=== PATIENT | male | born 1975 | race Caucasian/White ===

== ENCOUNTER 2017-04-21 10:18 | Emergency (ER) | payer SELFPAY ==
[2017-04-21] MEDS ORDERED: ASPIRIN 81 MG TABLET, CHEWABLE PO ONE (10:50)
--- NOTE | 2017-04-21 11:01 | ER Document Report ---
ED General - General Chief Complaint: Cough Stated Complaint: COUGH,CONGESTION,BACK PAIN Time Seen by Provider: 04/21/17 10:43 Mode of Arrival: Ambulatory Information source: Patient Notes: 42-year-old male presents to ED for complaint of cough and congestion for 3 days. He states his left side of his chest and back hurts when he coughs. He has nasal congestion and a sore throat. He states he has had a low-grade fever off and on. Last night his temp was 99.5 so he took some ibuprofen and he states he sweated a lot last night. TRAVEL OUTSIDE OF THE [place] IN LAST 30 DAYS: No - HPI Onset: Other - 3 days Onset/Duration: Gradual Quality of pain: Achy Severity: Moderate Pain Level: 3 Associated symptoms: Body/muscle aches, Chest pain - With cough, Nonproductive cough, Fever, Sore throat Exacerbated by: Coughing Relieved by: Denies Similar symptoms previously: No Recently seen / treated by doctor: No - Related Data Allergies/Adverse Reactions: codeine Allergy (Verified 04/21/17 10:23) venom-wasp [wasp venom] Allergy (Verified 12/28/15 12:39) Past Medical History - General Information source: Patient - Social History Smoking Status: Current Every Day Smoker Cigarette use (# per day): Yes - Pack per day Chew tobacco use (# tins/day): No Smoking Education Provided: Yes Frequency of alcohol use: Social Drug Abuse: Marijuana Family History: CAD, CVA, DM, Hyperlipidemia, Hypertension, Malignancy Patient has suicidal ideation: No Patient has homicidal ideation: No - Past Medical History Cardiac Medical History: Reports: None Renal/ Medical History: Denies: Hx Peritoneal Dialysis Past Surgical History: Reports: Hx Appendectomy, Hx Orthopedic Surgery - back sx - Immunizations Hx Diphtheria, Pertussis, Tetanus Vaccination: Yes Review of Systems - Review of Systems Constitutional: Fever, Recent illness EENT: Nose discharge, Sinus discharge Cardiovascular: Chest pain Respiratory: Cough - With cough, Short of breath Gastrointestinal: No symptoms reported Genitourinary: No symptoms reported Male Genitourinary: No symptoms reported Musculoskeletal: No symptoms reported Skin: No symptoms reported Hematologic/Lymphatic: No symptoms reported Neurological/Psychological: No symptoms reported -: Yes All other systems reviewed and negative Physical Exam - Vital signs Vitals: Pulse Resp BP Pulse Ox 73 20 124/78 98 04/21/17 10:21 04/21/17 10:21 04/21/17 10:21 04/21/17 10:21 Interpretation: Normal - General General appearance: Appears well, Alert - HEENT Head: Normocephalic, Atraumatic Eyes: Normal Pupils: PERRL - Respiratory Respiratory status: No respiratory distress Chest status: Pain with cough, Pain with deep breathing Breath sounds: Productive cough, Rales Chest palpation: Normal - Cardiovascular Rhythm: Regular Heart sounds: Normal auscultation Murmur: No - Abdominal Inspection: Normal Distension: No distension Bowel sounds: Normal Tenderness: Nontender Organomegaly: No organomegaly - Back Back: Normal, Nontender - Extremities General upper extremity: Normal inspection, Nontender, Normal color, Normal ROM , Normal temperature General lower extremity: Normal inspection, Nontender, Normal color, Normal ROM , Normal temperature, Normal weight bearing. No: Chaparro's sign - Neurological Neuro grossly intact: Yes Cognition: Normal Orientation: AAOx4 [place] Coma Scale Eye Opening: Spontaneous Tomasz Coma Scale Verbal: Oriented [place] Coma Scale Motor: Obeys Commands [place] Coma Scale Total: 15 Speech: Normal Motor strength normal: LUE, RUE, LLE, RLE Sensory: Normal - Psychological Associated symptoms: Normal affect, Normal mood - Skin Skin Temperature: Warm Skin Moisture: Dry Skin Color: Normal Course - Re-evaluation Re-evalutation: 04/21/17 22:10 Discussed x-rays labs and assessment with Dr. Boo. She agreed patient could go home after chemistry and cardiac enzymes were normal. Patient stated he had been drinking energy drinks and takes Adderall. Patient was discharged home - Vital Signs Vital signs: Temp Pulse Resp BP Pulse Ox 98.5 F 73 23 H 124/74 99 04/21/17 12:38 04/21/17 10:21 04/21/17 12:38 04/21/17 12:38 04/21/17 12:38 - Laboratory Result Diagrams: 04/21/17 10:58 04/21/17 10:58 Laboratory results interpreted by me: 04/21/17 10:58 Glucose 114 H Calcium 10.3 H Creatine Kinase 193 H - Diagnostic Test Radiology reviewed: Image reviewed, Reports reviewed Discharge - Discharge Clinical Impression: chest pain with cough URI (upper respiratory infection) Qualifiers: URI type: unspecified URI Qualified Code(s): J06.9 - Acute upper respiratory infection, unspecified Condition: Stable Disposition: HOME, SELF-CARE Instructions: Family Physicians / Practices Additional Instructions: UPPER RESPIRATORY ILLNESS: You have a viral infection of the respiratory passages -- a "cold." This common infection causes nasal congestion, drainage, and often sore throat and cough. It is highly contagious. The disease usually lasts about 10 to 14 days. There is no "cure" for the viral infection -- it must run its course. If there is a complication, such as bacterial infection in the nose, sinuses, middle ear, or bronchial tubes, antibiotics may be required. The antibiotics won't affect the virus. Drink plenty of fluids. A humidifier may help. An expectorant medication or decongestant may make you more comfortable. Use acetaminophen or ibuprofen for fever or aches. See the doctor if fever persists over two days, if there is any significant worsening of your symptoms, or if you simply fail to improve as expected. COUGH-SUPPRESSANT & EXPECTORANT MEDICATION: You are to use a cough medication as needed for relief of symptoms. This medicine is a combination of an expectorant (to make the mucous thinner and more easily "coughed up") and a cough suppressant (to reduce the frequency of coughing). The cough-suppressant medicine is related to narcotics. You may experience mild nausea and sleepiness. Some patients who are very sensitive to narcotics may have stomach pain from this medicine. Taking the medicine with food reduces these side effects. Do not drive or work with machinery until you know how this medicine affects you. The expectorant should have no side effects. Iodine-containing expectorants (such as organidin) should not be taken by persons with active thyroid disease unless approved by your doctor. Call the doctor if you develop shortness of breath, hives, rash, itching, lightheadedness, or severe nausea and vomiting. USE OF ACETAMINOPHEN (Tylenol): Acetaminophen may be taken for pain relief or fever control. It's much safer than aspirin, offering a wider range of "safe" dosages. It is safe during . Some brand names are Tylenol, Panadol, Datril, Anacin 3, Tempra, and Liquiprin. Acetaminophen can be repeated every four hours. The following are maximum recommended dosages: >89 pounds or adults 650 mg to 900 mg Acetaminophen can be repeated every four hours. Maximum dose not to exceed 4000 mg a day. SMOKING: If you smoke, you should stop smoking. The tar and chemicals in cigarette smoke are harmful. Smoking has been shown to cause: emphysema chronic bronchitis lung cancer mouth and throat cancer stomach and pancreas cancer premature aging defects In addition, smoking increases ear and lung infections in children of smokers. Please stop using the energy drinks as it can affect your health FOLLOW-UP CARE: If you have been referred to a physician for follow-up care, call the physician s office for an appointment as you were instructed or within the next two days. If you experience worsening or a significant change in your symptoms, notify the physician immediately or return to the Emergency Department at any time for re-evaluation. Forms: Smoking Cessation Education
[2017-04-21 11:25] LABS: ABSOLUTE BASOPHILS # (AUTO) 0.1 10^3/uL (0.0-0.2); ABSOLUTE EOSINOPHILS # (AUTO) 0.1 10^3/uL (0.0-0.6); ABSOLUTE LYMPHOCYTES (AUTO) 1.2 10^3/uL (0.5-4.7); ABSOLUTE MONOCYTES (AUTO) 0.5 10^3/uL (0.1-1.4); ABSOLUTE NEUT (AUTO) 4.4 10^3/uL (1.7-8.2); BASOPHILS % (AUTO) 0.9 % (0-2); EOSINOPHILS % (AUTO) 1.8 % (0-6); HEMOGLOBIN 15.3 g/dL (13.5-17.0); HGB HCT DIFFERENCE 2.9; LYMPHOCYTES % (AUTO) 18.8 % (13-45); MEAN CORPUSCULAR HEMOGLOBIN 31.7 pg (27.0-33.4); MEAN CORPUSCULAR HGB CONC 35.6 g/dL (32.0-36.0); MEAN CORPUSCULAR VOLUME 89 fl (80-97); MONOCYTES % (AUTO) 7.3 % (3-13); RED BLOOD COUNT 4.83 10^6/uL (4.35-5.55); RED CELL DISTRIBUTION WIDTH 12.4 % (11.5-14.0); SEGMENTED NEUTROPHILS % (AUTO) 71.2 % (42-78); WHITE BLOOD COUNT 6.2 10^3/uL (4.0-10.5)
[2017-04-21 11:41] LABS: ANION GAP 9 (5-19); BLOOD UREA NITROGEN 14 mg/dL (7-20); CALCIUM 10.3 mg/dL (8.4-10.2); CARBON DIOXIDE 27 mmol/L (22-30); CHLORIDE 102 mmol/L (98-107); CREATINE KINASE 193 U/L (55-170); CREATININE RESULT 0.83 mg/dL (0.52-1.25); GLUCOSE 114 mg/dL (75-110); POTASSIUM 4.2 mmol/L (3.6-5.0); SODIUM 138.3 mmol/L (137-145)
[2017-04-21 11:43] LABS: APPEARANCE,URINE CLEAR; BILIRUBIN,URINE NEGATIVE (NEGATIVE); GLUCOSE, URINE NEGATIVE (NEGATIVE); KETONES,URINE NEGATIVE (NEGATIVE); LEUKOCYTE ESTERASE,URINE NEGATIVE (NEGATIVE); NITRITE,URINE NEGATIVE (NEGATIVE); PROTEIN,URINE NEGATIVE (NEGATIVE); URINE SPECIFIC GRAVITY 1.006; UROBILINOGEN,URINE NEGATIVE mg/dL (<2.0)
[2017-04-21 11:52] LABS: CREATINE KINASE MB 2.54 ng/mL (<4.55)
[2017-04-21 11:53] LABS: TROPONIN I < 0.012 ng/mL
[2017-04-21 12:00] LABS: URINE BARBITURATES SCREEN NEGATIVE; URINE METHADONE SCREEN NEGATIVE; URINE OPIATES LOW NEGATIVE; URINE PHENCYCLIDINE SCREEN NEGATIVE
--- NOTE | 2017-04-21 12:05 | RADIOLOGY REPORT (SQ) ---
EXAM DESCRIPTION: CHEST PA/LAT COMPLETED DATE/TIME: 04/21/2017 11:47 am REASON FOR STUDY: cough and congestion COMPARISON: None. EXAM PARAMETERS: NUMBER OF VIEWS: two views TECHNIQUE: Digital Frontal and Lateral radiographic views of the chest acquired. RADIATION DOSE: NA LIMITATIONS: none FINDINGS: LUNGS AND PLEURA: No opacities, masses or pneumothorax. No pleural effusion. MEDIASTINUM AND HILAR STRUCTURES: No masses or contour abnormalities. HEART AND VASCULAR STRUCTURES: Heart normal size. No evidence for failure. BONES: No acute findings. HARDWARE: None in the chest. OTHER: No other significant finding. IMPRESSION: NO SIGNIFICANT RADIOGRAPHIC FINDING IN THE CHEST. TECHNICAL DOCUMENTATION: JOB ID: [id number] [employer]- All Rights Reserved
[2017-04-21 12:40] VITALS: BP 124/74
== END 2017-04-21 12:40 | disposition home or self-care (01) ==
LOC: ER 10:18
DX: J06.9 Acute upper respiratory infection, unspecified (principal); R07.9 Chest pain, unspecified; M54.9 Dorsalgia, unspecified; M79.1 Myalgia; F17.210 Nicotine dependence, cigarettes, uncomplicated; Z88.6 Allergy status to analgesic agent; Z91.038 Other insect allergy status
CPT/HCPCS: 36415; 71020; 80048; 80307; 81001; 82550; 82553; 84484; 85025; 99284

== ENCOUNTER 2019-09-01 16:02 | Emergency (ER) | payer SELFPAY ==
[2019-09-01 16:12] VITALS: BP 123/64
[2019-09-01] MEDS ORDERED: IBUPROFEN 800 MG TABLET PO ONE (17:20)
--- NOTE | 2019-09-01 17:20 | ER Document Report ---
HPI - HPI Time Seen by Provider: 09/01/19 17:11 Pain Level: 2 Context: Patient is a 44-year-old male who presents emergency department with a chief complaint of right posterior and anterior rib pain. Patient reports is been constant for about 2 days. 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 Patient not sure if this made it worse. Patient reports the pain is worse with movement and cough. Patient reports 2 days ago also developing a cough with thick mucus. Patient reports he is attempted to use heating pads and Tylenol without much relief. Patient denies abdominal pain, nausea, vomiting or diarrhea. Patient denies chest pain. - CONSTITUTIONAL Constitutional: REPORTS: Fever. DENIES: Chills - REPRODUCTIVE Reproductive: DENIES: : Past Medical History - General Information source: Patient - Social History Smoking Status: Current Every Day Smoker Chew tobacco use (# tins/day): No Frequency of alcohol use: Occasional Drug Abuse: None Lives with: Family Family History: CAD, CVA, DM, Hyperlipidemia, Hypertension, Malignancy Patient has suicidal ideation: No Patient has homicidal ideation: No - Past Medical History Cardiac Medical History: Reports: None Pulmonary Medical History: Reports: None EENT Medical History: Reports: None Neurological Medical History: Reports: None Endocrine Medical History: Reports: None Renal/ Medical History: Reports: None. Denies: Hx Peritoneal Dialysis Malignancy Medical History: Reports None GI Medical History: Reports: None Musculoskeletal Medical History: Reports None Skin Medical History: Reports None Psychiatric Medical History: Reports: None Traumatic Medical History: Reports: None Infectious Medical History: Reports: None Past Surgical History: Reports: Hx Appendectomy, Hx Orthopedic Surgery - back sx - Immunizations Hx Diphtheria, Pertussis, Tetanus Vaccination: Yes Vertical Provider Document - CONSTITUTIONAL Agree With Documented VS: Yes Exam Limitations: No Limitations General Appearance: No Apparent Distress - INFECTION CONTROL TRAVEL OUTSIDE OF THE [place] IN LAST 30 DAYS: No - HEENT HEENT: Atraumatic, Normal ENT Exam, Normocephalic, PERRLA - NECK Neck: Normal Inspection - RESPIRATORY Respiratory: Breath Sounds Normal, No Respiratory Distress Notes: Tenderness noted to the right lower posterior ribs, and tenderness noted to the right lower anterior ribs with palpation. There is no ecchymosis, no CVA tenderness. - CARDIOVASCULAR Cardiovascular: Regular Rate, Regular Rhythm - GI/ABDOMEN Gastrointestinal: Abdomen Soft, Abdomen Non-Tender, Normal Bowel Sounds - MUSCULOSKELETAL/EXTREMETIES Musculoskeletal/Extremeties: FROM - NEURO Level of Consciousness: Awake, Alert, Appropriate - DERM Integumentary: Warm, Dry, No Rash Course - Re-evaluation Re-evalutation: 09/01/19 20:03 Upon reassessment patient resting comfortably no acute distress. Did inform the patient that her symptoms are either to acute to a costochondritis from continuous cough and/or musculoskeletal strain. I did give the patient strict return precautions and will place him on anti-inflammatories [id number]. Patient verbalized understanding denies questions at this time. - Vital Signs Vital signs: Temp Pulse Resp BP Pulse Ox 98.8 F 81 16 123/64 96 09/01/19 16:11 09/01/19 16:11 09/01/19 16:11 09/01/19 16:11 09/01/19 16:11 - Laboratory Laboratory results interpreted by me: 09/01/19 18:26 Laboratory 09/01/19 17:30 Urine Color YELLOW Urine Appearance CLEAR Urine pH 7.0 Ur Specific [place] 1.019 Urine Protein NEGATIVE Urine Glucose (UA) NEGATIVE Urine Ketones NEGATIVE Urine Blood NEGATIVE Urine Nitrite NEGATIVE Urine Bilirubin SMALL H Urine Urobilinogen NEGATIVE Ur Leukocyte Esterase NEGATIVE Urine WBC (Auto) 1 Urine RBC (Auto) 0 Urine Mucus (Auto) RARE Urine Ascorbic Acid NEGATIVE - Diagnostic Test Radiology reviewed: Reports reviewed Radiology results interpreted by me: 09/01/19 18:10 Chest X-Ray 09/01/19 17:18 IMPRESSION: NO ACUTE FINDINGS. Discharge - Discharge Clinical Impression: Rib pain on right side, Costochondritis Condition: Stable Disposition: HOME, SELF-CARE Additional Instructions: *Today was seen in the emergency department for right mid back pain and right rib pain. I did obtain an x-ray which did not show a pneumonia. 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 For both of these you do take anti-inflammatories. Please rest, you can take ibuprofen, Aleve, Motrin for your discomfort. Please return the emergency department if you develop any worsening signs or symptoms such as chest pain, shortness of breath or any new or worsening symptoms. Costochondritis Your chest pain is coming from the rib cartilages in the chest wall. This is often caused by subtle straining of the ribs near the breastbone. The strain can occur from a mild injury, coughing or sneezing with a "cold," vigorous vomiting, or even from rib compression while sleeping. Often the pain doesn't begin until a couple of days after the strain. Persons with arthritis are especially prone to this type of pain, due to inflammation of the cartilage joints near the breast bone. But often, there is no clear reason why it happens. Rest from strenuous physical activity. This kind of chest pain is usually made worse by movement of the chest. Depending on the symptoms, we may prescribe medicine for pain and inflammation. Apply gentle warmth to the painful area for 15 minutes every hour or two. You should call contact the doctor immediately if things change. Further evaluation is needed if you develop a fever or cough, if the nature of the pain changes, or if you become short of breath. Muscle Strain You have strained a muscle -- torn the fibers within the muscle. This often occurs with strenuous exertion, or during an injury that suddenly stretches the muscle. The seriousness of a strain varies. Some strains heal within days, others cause problems for months. X-rays cannot show a muscle strain. X-rays are taken only if symptoms suggest that a fracture could be present. The usual treatment of a muscle strain is rest and ice packs. Sometimes, a sling, splint, or crutches may be necessary to rest the muscle. The muscle can be used again once pain subsides. Severe strains require a special exercise and stretching program to prevent permanent stiffness and disability. Your doctor will advise you if this will be necessary. Call the doctor immediately if pain or swelling becomes severe, or if numbness or discoloration develop. Referrals: [facility] [Provider Group] - Follow up as needed
--- NOTE | 2019-09-01 18:06 | RADIOLOGY REPORT (SQ) ---
EXAM DESCRIPTION: CHEST 2 VIEWS COMPLETED DATE/TIME: 09/01/2019 5:46 pm REASON FOR STUDY: right rib pain COMPARISON: 04/21/2017 TECHNIQUE: Frontal and lateral radiographic views of the chest acquired. NUMBER OF VIEWS: Two view. LIMITATIONS: None. FINDINGS: LUNGS AND PLEURA: No pneumothorax. No consolidation or pleural effusion. MEDIASTINUM AND HILAR STRUCTURES: Stable. HEART AND VASCULAR STRUCTURES: Stable. BONES: No acute findings. HARDWARE: None in the chest. OTHER: No other significant finding. IMPRESSION: NO ACUTE FINDINGS. TECHNICAL DOCUMENTATION: JOB ID: [id number] [employer]- All Rights Reserved Reading location - IP/workstation name: [email or web address]
[2019-09-01 18:08] LABS: APPEARANCE,URINE CLEAR; BILIRUBIN,URINE SMALL (NEGATIVE); COLOR,URINE YELLOW; GLUCOSE, URINE NEGATIVE (NEGATIVE); KETONES,URINE NEGATIVE (NEGATIVE); LEUKOCYTE ESTERASE,URINE NEGATIVE (NEGATIVE); NITRITE,URINE NEGATIVE (NEGATIVE); PROTEIN,URINE NEGATIVE (NEGATIVE); URINE SPECIFIC GRAVITY 1.019; UROBILINOGEN,URINE NEGATIVE mg/dL (<2.0)
== END 2019-09-01 20:19 | disposition home or self-care (01) ==
LOC: ER 16:02
DX: M94.0 Chondrocostal junction syndrome [Tietze] (principal); R07.81 Pleurodynia; R50.9 Fever, unspecified; F17.200 Nicotine dependence, unspecified, uncomplicated
CPT/HCPCS: 71046; 81001; 99283

== ENCOUNTER 2019-09-02 18:05 | Emergency (ER) | payer SELFPAY ==
[2019-09-02] MEDS ORDERED: NORMAL SALINE 1000 ML 1,000 ML IV ONE (22:16)
[2019-09-02] MEDS ORDERED: HYDROMORPHONE HCL INJ/PF 2 MG/ML AMPULE IV ONE (22:17)
[2019-09-02] MEDS ORDERED: ONDANSETRON HCL INJ/PF 4 MG/2 ML SDV IV ONE (22:18)
--- NOTE | 2019-09-02 23:00 | ER Document Report ---
Entered by RENNY MORRISON SCRIBE 09/02/19 [id number] Acting as scribe for:VICKIE KNOX IV, MD ED General - General Chief Complaint: Breathing Difficulty Stated Complaint: CONGESTION,SHORT OF BREATH Time Seen by Provider: 09/02/19 22:02 Mode of Arrival: Ambulatory Information source: Patient Notes: This 44 year old male patient presents to the emergency department today with complaints of generalized chest pain that is exacerbated with any and all movements as well as breathing, coughing, etc. Patient was seen here yesterday for this and was diagnosed with costochondritis. Patient reports that since discharge his cough has gotten worse. Patient reports that yesterday his pain was only on the right side of his chest and he states he was told that "if his pain ever moved to the left side of his chest" he needed to come back into the emergency department. Patient reports prior to arrival his pain was across his entire chest and back which is why he came in today. TRAVEL OUTSIDE OF THE [place] IN LAST 30 DAYS: No - Related Data Allergies/Adverse Reactions: codeine Allergy (Verified 09/01/19 17:01) venom-wasp [wasp venom] Allergy (Verified 09/01/19 17:01) Past Medical History - General Information source: Patient - Social History Smoking Status: Current Every Day Smoker Cigarette use (# per day): Yes Frequency of alcohol use: Social Drug Abuse: None Lives with: Family Family History: CAD, CVA, DM, Hyperlipidemia, Hypertension, Malignancy Patient has suicidal ideation: No Patient has homicidal ideation: No Psychiatric Medical History: Reports: Hx Attention Deficit Hyperactivity Disorder - off meds 05/2019 Past Surgical History: Reports: Hx Appendectomy, Hx Orthopedic Surgery - back sx - Immunizations Hx Diphtheria, Pertussis, Tetanus Vaccination: Yes Review of Systems - Review of Systems Constitutional: See HPI, Fever EENT: No symptoms reported Cardiovascular: See HPI, Chest pain Respiratory: See HPI, Cough, Hurts to breathe Gastrointestinal: No symptoms reported Genitourinary: No symptoms reported Male Genitourinary: No symptoms reported Musculoskeletal: No symptoms reported Skin: No symptoms reported Hematologic/Lymphatic: No symptoms reported Neurological/Psychological: No symptoms reported -: Yes All other systems reviewed and negative Physical Exam - Vital signs Vitals: Temp Pulse Resp BP Pulse Ox 99.2 F 95 18 172/60 H 96 09/02/19 18:21 09/02/19 18:21 09/02/19 18:21 09/02/19 18:21 09/02/19 18:21 - Notes Notes: Physical Exam: General: Alert, appears well. HEENT: Normocephalic. Atraumatic. PERRL. Extraocular movements intact. Oropharynx clear. Neck: Supple. Non-tender. Respiratory: No respiratory distress. Crackles and rhonchi in the right lower lobe. Pain with only minimal palpation of the posterior ribs. Cardiovascular: Regular rate and rhythm. Abdominal: Normal Inspection. Non-tender. No distension. Normal Bowel Sounds. Back: No gross abnormalities. Extremities: Moves all four extremities. Upper extremities: Normal inspection. Normal ROM. Lower extremities: Normal inspection. No edema. Normal ROM. Neurological: Normal cognition. AAOx4. Normal speech. Psychological: Normal affect. Normal Mood. Skin: Warm. Dry. Normal color. Course - Re-evaluation Re-evalutation: 09/03/19 01:32 Patient states his pain is improved. Findings of ED MSE discussed with patient. All questions were answered. Emergency signs and symptoms, reasons to return to the ED discussed with patient. When asked if everything about the patient's ED visit was explained in a manner in which she could understand, patient answered in the affirmative. - Vital Signs Vital signs: Temp Pulse Resp BP Pulse Ox 99.6 F 94 22 H 130/82 H 93 09/03/19 01:20 09/03/19 01:20 09/03/19 01:20 09/03/19 01:20 09/03/19 01:20 - Laboratory Result Diagrams: 09/02/19 23:00 09/02/19 23:00 Laboratory results interpreted by me: 09/02/19 09/02/19 23:00 23:00 WBC 20.9 H Seg Neuts % (Manual) 85 H Band Neutrophils % 7 H Lymphocytes % (Manual) 3 L Abs Neuts (Manual) 19.2 H Sodium 134.4 L Chloride 97 L Glucose 124 H Calcium 10.3 H AST 84 H Alkaline Phosphatase 130 H - EKG Interpretation by Me Additional EKG results interpreted by me: 09/03/19 01:33 EKG obtained on 09/02/2019 at 2240 hrs. was interpreted by this MD. Findings: Normal sinus rhythm, rate 79, normal axis, P waves proceed QRS complexes, QRS complexes appear narrow, there are no obvious patterns of ST segment elevation or depression to suggest acute myocardial ischemia or infarction. Impression normal sinus rhythm with nonspecific ST segments. Discharge - Discharge Clinical Impression: Right lower lobe pneumonia Qualifiers: Pneumonia type: due to unspecified organism Qualified Code(s): J18.9 - Pneumonia, unspecified organism Condition: Good Disposition: HOME, SELF-CARE Additional Instructions: Return to the Emergency Department without delay if any worse. Pneumonia Your examination indicates that you have pneumonia. This is an infection of the lung tissue, usually caused by bacteria or a virus. Symptoms include cough, fever, shaking chills, chest pain, shortness of breath, and coughing up bloody sputum. Treatment for bacterial pneumonia includes rest, antibiotics for 10 to 14 days, increasing your clear liquid intake, a cool mist humidifier at your bedside, and fever medication. Often, a repeat chest X-ray is performed in a few weeks--even if you feel better--to ascertain whether the infection has completely resolved and no underlying lung problem is present. You should call the physician if you develop persistent vomiting, high fever that does not respond to fever medication, increasing shortness of breath, confusion, or lethargy. Also, failure to improve within two to three days is an indication for re-examination. HOME CARE INSTRUCTIONS & INFORMATION: Thank you for choosing us for your medical needs. We hope you're satisfied with the care you received. After you leave, you must properly care for your problem and, at the same time, observe its progress. Any condition can change. Some illnesses can change rapidly over hours or days. If your condition worsens, return to the Emergency Department or see your physician promptly. ABOUT YOUR X-RAYS AND EKG'S: If you had an EKG or X-rays taken, they have been read by the Emergency Physician. The X-rays and EKG's will also be read by a Radiologist or Policy Manager within 24 hours. If discrepancies are noted, you will be notified by telephone. Please be certain the ED has a correct telephone number & address where you can be reached. Also, realize that some fractures or abnormalities do not show up on initial X-rays. If your symptoms continue, see your physician. ABOUT YOUR LABORATORY TEST: If you had laboratory tests, the results have been reviewed by the Emergency Physician. Some test results (for example cultures) may not be available for several days. You will be contacted if any test result shows you need additional treatment. Please be certain the ED has a correct telephone number and address where you can be reached. ABOUT YOUR MEDICATIONS: You will receive instructions on how to take your medicine on the prescription label you receive. Additional information may be provided by the Pharmacy. If you have questions afterwards, call the ED for clarification or further instructions. Some prescribed medications may cause drowsiness. Do not perform tasks such as driving a car or operating machinery without consulting your Pharmacist. If you feel you need a refill of pain medication, your condition will need re-evaluation. Please do not call for a refill of any medication. ABOUT YOUR SIGNATURE: Signature of this document acknowledges to followin. Understanding that you received emergency treatment and that you may be released before al medical problems are known or treated. Please be certain the ED has a correct phone number & address where you can be reached. 2. Acknowledgement that you will arrange for follow-up care as recommended. 3. Authorization for the Emergency Physician to provide information to your follow-up Physician in order to maximize your care. AT ANY TIME, IF YOUR SYMPTOMS CHANGE SIGNIFICANTLY OR WORSEN OR YOU DEVELOP NEW SYMPTOMS, RETURN TO THE EMERGENCY DEPARTMENT IMMEDIATELY FOR RE-EVALUATION. OUR GOAL IS TO PROVIDE EXCELLENT MEDICAL CARE! WE HOPE THAT WE HAVE MET YOUR EXPECTATIONS DURING YOUR EMERGENCY DEPARTMENT SIT AND THAT YOU FEEL YOU HAVE RECEIVED EXCELLENT CARE! Prescriptions: Oxycodone HCl/Acetaminophen [Percocet 5-325 mg Tablet] 1 tab PO Q6HP PRN #12 tablet PRN Reason: Levofloxacin [Levaquin 750 mg Tablet] 750 mg PO DAILY #4 tablet Referrals: SHAHAB DE LEON MD [HONORARY] - Follow up as needed I personally performed the services described in the documentation, reviewed and edited the documentation which was dictated to the scribe in my presence, and it accurately records my words and actions.
[2019-09-02 23:30] LABS: A TYPE INFLUENZA AG NEGATIVE (NEGATIVE); B INFLUENZA AG NEGATIVE (NEGATIVE)
[2019-09-02 23:43] LABS: ALBUMIN 3.9 g/dL (3.5-5.0); ALKALINE PHOSPHATASE 130 U/L (38-126); ANION GAP 9 (5-19); ASPARTATE AMINO TRANSFERASE 84 U/L (17-59); BILIRUBIN,TOTAL 0.8 mg/dL (0.2-1.3); BLOOD UREA NITROGEN 13 mg/dL (7-20); CALCIUM 10.3 mg/dL (8.4-10.2); CARBON DIOXIDE 28 mmol/L (22-30); CHLORIDE 97 mmol/L (98-107); GLUCOSE 124 mg/dL (75-110); POTASSIUM 4.5 mmol/L (3.6-5.0); TOTAL PROTEIN 6.8 g/dL (6.3-8.2)
--- NOTE | 2019-09-02 23:48 | RADIOLOGY REPORT (SQ) ---
EXAM DESCRIPTION: Two views of the chest CLINICAL HISTORY: 44 years Male, crackles right base COMPARISON: Two views of the chest 04/21/2017 FINDINGS: Lungs: parenchymal opacification is seen in the left lower lobe with air bronchograms concerning for pneumonia. There is diffuse prominence of interstitial markings bilaterally and overall lung volumes have decreased. Mediastinum: Cardiac and mediastinal silhouette are unchanged. Bones: Osseous structures are normal. IMPRESSION: Interval reduction in lung volumes with development of parenchymal consolidation in the right lower lobe consistent with pneumonia.
[2019-09-02 23:52] LABS: HEMATOCRIT 43.6 % (37.9-51.0); HEMOGLOBIN 14.8 g/dL (13.5-17.0); MEAN CORPUSCULAR HEMOGLOBIN 29.9 pg (27.0-33.4); MEAN CORPUSCULAR VOLUME 88 fl (80-97); PLATELET COUNT 349 10^3/uL (150-450); RED BLOOD COUNT 4.95 10^6/uL (4.35-5.55); RED CELL DISTRIBUTION WIDTH 12.1 % (11.5-14.0); WHITE BLOOD COUNT 20.9 10^3/uL (4.0-10.5)
[2019-09-03 00:07] LABS: ABSOLUTE LYMPHOCYTES# (MANUAL) 0.6 10^3/uL (0.5-4.7); BAND NEUTROPHILS % (MANUAL) 7 % (3-5); BASOPHILS % (MANUAL) 0 % (0-2); EOSINOPHILS % (MANUAL) 0 % (0-6); LYMPHOCYTES % (MANUAL) 3 % (13-45); MONOCYTES % (MANUAL) 5 % (3-13); SEGMENTED NEUTROPHILS % (MAN) 85 % (42-78); TOTAL CELLS COUNTED 100
[2019-09-03 00:08] LABS: PLATELET COMMENT ADEQUATE; RBC MORPHOLOGY COMMENT NORMO-CYTIC/CHROMIC
[2019-09-03] MEDS ORDERED: LEVOFLOXACIN 750 MG/D5W RTU 750 MG/150 ML RTUPB IV ONE (00:09)
[2019-09-03] MEDS ORDERED: MORPHINE SULFATE 10 MG/ML INJ IV ONE (00:27)
[2019-09-03] MEDS ORDERED: HYDROCODONE/ACETAMINOPHEN 5-325 MG (6 TAB/ER DISP) PO PRN (01:36)
[2019-09-03 01:58] VITALS: BP 127/74
--- NOTE | 2019-09-03 06:30 | EKG REPORT ---
SEVERITY:- ABNORMAL ECG - SINUS RHYTHM PROBABLE LEFT ATRIAL ABNORMALITY BORDERLINE INFERIOR Q WAVES INCOMPLETE RBBB : Confirmed by: Brodie Harris MD 03-Sep-2019 06:29:33
== END 2019-09-03 01:59 | disposition home or self-care (01) ==
LOC: ER 18:05
DX: J18.9 Pneumonia, unspecified organism (principal); R07.1 Chest pain on breathing; R05 Cough; R50.9 Fever, unspecified; F17.210 Nicotine dependence, cigarettes, uncomplicated; Z88.6 Allergy status to analgesic agent; Z88.5 Allergy status to narcotic agent; Z91.038 Other insect allergy status; Z82.49 Family history of ischemic heart disease and other diseases of the circulatory system
CPT/HCPCS: 93005; 99285; 96375; 96365; 36415; 87040; 83690; 85025; 87077; 80053; 87186; 87804; 87150 ×26; 71046; 93010; J2270; J1170; J2405; J7030; J1956

== ENCOUNTER 2019-09-04 11:14 | Inpatient (IN) | payer SELFPAY ==
[2019-09-04] MEDS ORDERED: VANCOMYCIN HCL INJ 1000 MG VIAL IV ONE (12:11)
--- NOTE | 2019-09-04 12:12 | ER Document Report ---
ED Medical Screen (RME) - General Chief Complaint: Back Pain Stated Complaint: BACK PAIN Time Seen by Provider: 09/04/19 12:06 TRAVEL OUTSIDE OF THE [place] IN LAST 30 DAYS: No - HPI Notes: 09/04/19 12:06 44-year-old male presents emergency room for blood cultures that grew positive for methicillin resistant staph aureus as well as for back pain from coughing. He was diagnosed with pneumonia 2 days ago and was started on levofloxacin. Patient was asked to come back to the emergency room for medical treatment. Patient did take prescribed oxycodone for his back pain. Denies any issues with bowel or bladder dysfunction. Reports shortness of breath. Eating and drinking without issues. I have greeted and performed a rapid initial assessment of this patient. A comprehensive ED assessment and evaluation of the patient, analysis of test results and completion of the medical decision making process will be conducted by additional ED providers. PHYSICAL EXAMINATION: GENERAL: Well-appearing, well-nourished and in no acute distress. NECK: Normal range of motion CV: s1, s2 regular LUNGS: Diminished breath sounds in upper lobes no respiratory distress Musculoskeletal: Normal range of motion NEUROLOGICAL: Normal speech, normal gait. SKIN: Warm, Dry, normal turgor, no rashes or lesions noted. 09/04/19 12:13 - Related Data Allergies/Adverse Reactions: codeine Allergy (Verified 09/04/19 12:06) venom-wasp [wasp venom] Allergy (Verified 09/04/19 12:06) Past Medical History Renal/ Medical History: Denies: Hx Peritoneal Dialysis Psychiatric Medical History: Reports: Hx Attention Deficit Hyperactivity Disorder - off meds 05/2019 Past Surgical History: Reports: Hx Appendectomy, Hx Orthopedic Surgery - back sx - Immunizations Hx Diphtheria, Pertussis, Tetanus Vaccination: Yes Physical Exam - Vital signs Vitals: Temp Pulse Resp BP Pulse Ox 98.1 F 74 16 110/61 100 09/04/19 11:43 09/04/19 11:43 09/04/19 11:43 09/04/19 11:43 09/04/19 11:43 Course - Vital Signs Vital signs: Temp Pulse Resp BP Pulse Ox 98.1 F 74 16 110/61 100 09/04/19 11:43 09/04/19 11:43 09/04/19 11:43 09/04/19 11:43 09/04/19 11:43
[2019-09-04] MEDS ORDERED: IPRATROPIUM/ALBUTEROL 0.5-2.5 MG/3 ML AMPUL NEB ONE (12:13)
--- NOTE | 2019-09-04 12:48 | RADIOLOGY REPORT (SQ) ---
EXAM DESCRIPTION: L SPINE WHOLE COMPLETED DATE/TIME: 09/04/2019 12:37 pm REASON FOR STUDY: lower back pain COMPARISON: None. NUMBER OF VIEWS: Five views including obliques. TECHNIQUE: AP, lateral, oblique, and sacral radiographic images acquired of the lumbar spine. LIMITATIONS: None. FINDINGS: MINERALIZATION: Normal. SEGMENTATION: Normal. No transitional anatomy. ALIGNMENT: Dextroscoliosis in the upper lumbar spine. VERTEBRAE: Maintained height. No fracture or worrisome bone lesion. DISCS: Mild disc narrowing from L3-L5. POSTERIOR ELEMENTS: Pedicles and facets are intact. No pars defect or posterior arch defects. HARDWARE: None in the spine. PARASPINAL SOFT TISSUES: Normal. PELVIS: Intact as visualized. No fractures or worrisome bone lesions. SI joints intact. OTHER: No other significant finding. IMPRESSION: Scoliosis. Mild degenerative disc changes. TECHNICAL DOCUMENTATION: JOB ID: [id number] [employer]- All Rights Reserved Reading location - IP/workstation name: [email or web address]
[2019-09-04 13:18] LABS: HEMATOCRIT 41.6 % (37.9-51.0); HEMOGLOBIN 14.5 g/dL (13.5-17.0); MEAN CORPUSCULAR HEMOGLOBIN 30.8 pg (27.0-33.4); MEAN CORPUSCULAR HGB CONC 34.7 g/dL (32.0-36.0); MEAN CORPUSCULAR VOLUME 89 fl (80-97); PLATELET COUNT 293 10^3/uL (150-450); RED BLOOD COUNT 4.69 10^6/uL (4.35-5.55); RED CELL DISTRIBUTION WIDTH 12.5 % (11.5-14.0)
[2019-09-04] MEDS ORDERED: PIPERACILLIN/TAZOBACTAM 3.375 GM VIAL IV ONE (13:32)
[2019-09-04 13:35] LABS: ALBUMIN 3.6 g/dL (3.5-5.0); ALKALINE PHOSPHATASE 168 U/L (38-126); ANION GAP 10 (5-19); ASPARTATE AMINO TRANSFERASE 57 U/L (17-59); BILIRUBIN,DIRECT 1.1 mg/dL (0.0-0.4); BILIRUBIN,TOTAL 2.2 mg/dL (0.2-1.3); BLOOD UREA NITROGEN 18 mg/dL (7-20); CALCIUM 10.3 mg/dL (8.4-10.2); CARBON DIOXIDE 30 mmol/L (22-30); CHLORIDE 93 mmol/L (98-107); GLUCOSE 115 mg/dL (75-110); POTASSIUM 5.2 mmol/L (3.6-5.0); TOTAL PROTEIN 6.6 g/dL (6.3-8.2)
[2019-09-04] MEDS ORDERED: CEFEPIME 1 GM/D5W RTU 1 GM/50 ML RTUPB IV ONE (13:41)
[2019-09-04] MEDS ORDERED: MORPHINE SULFATE 10 MG/ML INJ IV ONE (13:42)
[2019-09-04] MEDS ORDERED: NORMAL SALINE 100 ML IV ONE (13:43)
--- NOTE | 2019-09-04 13:44 | ER Document Report ---
ED General - General Chief Complaint: Abnormal Lab Results Stated Complaint: BACK PAIN Time Seen by Provider: 09/04/19 12:06 TRAVEL OUTSIDE OF THE [place] IN LAST 30 DAYS: No - HPI Notes: 44-year-old male to the emergency department with complaints of cough, chest pain, shortness of breath that has been ongoing for the past 3 to 4 days. He was seen 2 days ago in our emergency department and diagnosed with pneumonia. He was placed on Levaquin. He states that he got a phone call stating that he needed to return to the emergency department because he had positive blood cultures. He states that he has not been feeling very well at all. He states that he has pretty bad back pain as well and this morning he noticed a red raised painful area on his back. He states that he has had a fever upwards of 102. He last took a Percocet this morning for pain and fever control. He states that he is a smoker. He smokes a pack a day but has not been able to do so since all of this started. He denies any nausea, vomiting, diarrhea, urinary complaints. - Related Data Allergies/Adverse Reactions: codeine Allergy (Verified 09/04/19 12:06) venom-wasp [wasp venom] Allergy (Verified 09/04/19 12:06) Home Medications: denies change since er visit yesterday Past Medical History - General Information source: Patient - Social History Smoking Status: Current Every Day Smoker Chew tobacco use (# tins/day): No Frequency of alcohol use: Occasional Drug Abuse: None Lives with: Family Family History: CAD, CVA, DM, Hyperlipidemia, Hypertension, Malignancy Patient has suicidal ideation: No Patient has homicidal ideation: No Renal/ Medical History: Denies: Hx Peritoneal Dialysis Psychiatric Medical History: Reports: Hx Attention Deficit Hyperactivity Disorder - off meds 05/2019 Past Surgical History: Reports: Hx Appendectomy, Hx Orthopedic Surgery - back sx - Immunizations Hx Diphtheria, Pertussis, Tetanus Vaccination: Yes Review of Systems - Review of Systems Constitutional: Chills, Fever, Malaise EENT: No symptoms reported Cardiovascular: Chest pain. denies: Palpitations, Heart racing, Orthopnea, Dyspnea, Syncope, Dizziness Respiratory: Cough, Short of breath Gastrointestinal: denies: Abdominal pain, Diarrhea, Nausea, Vomiting Genitourinary: No symptoms reported Musculoskeletal: See HPI, Back pain Skin: See HPI, Other - Raised red bump on the back that is painful Hematologic/Lymphatic: No symptoms reported Neurological/Psychological: No symptoms reported -: Yes All other systems reviewed and negative Physical Exam - Vital signs Vitals: Temp Pulse Resp BP Pulse Ox 98.1 F 74 16 110/61 100 09/04/19 11:43 09/04/19 11:43 09/04/19 11:43 09/04/19 11:43 09/04/19 11:43 Interpretation: Normal - General General appearance: Alert Notes: Patient in moderate pain distress. When he tries to take a big deep breath or move a lot he has pain in his chest and his back. - HEENT Head: Normocephalic, Atraumatic Eyes: Normal Pupils: PERRL Ears: Normal External canal: Normal Tympanic membrane: Normal Sinus: Normal Nasal: Normal Mouth/Lips: Normal Pharynx: Normal. No: Potential airway comprom. Neck: Normal, Supple. No: Lymphadenopathy, Meningismus - Respiratory Respiratory status: No respiratory distress. No: Retractions, Tachypnea Chest status: Tender - Tender to palpation over the chest wall and the back, Pain on movement, Pain with cough, Pain with deep breathing. No: Accessory muscle use Breath sounds: Decreased air movement - Decreased air movement throughout with cough. No: Rales, Rhonchi, Stridor, Wheezing Chest palpation: Normal - Cardiovascular Rhythm: Regular Heart sounds: Normal auscultation Murmur: No - Abdominal Inspection: Normal Distension: No distension Bowel sounds: Normal Tenderness: Nontender Organomegaly: No organomegaly - Back Back: Tender - Neurological Neuro grossly intact: Yes Cognition: Normal Orientation: AAOx4 [place] Coma Scale Eye Opening: Spontaneous [place] Coma Scale Verbal: Oriented [place] Coma Scale Motor: Obeys Commands [place] Coma Scale Total: 15 Speech: Normal Motor strength normal: LUE, RUE, LLE, RLE Sensory: Normal - Skin Skin Temperature: Warm Skin Moisture: Dry Skin Color: Normal Skin irregularity: Abscess - There appears to be an evolving 3 cm in diameter abscess to the right back. It is not fluctuant but it is indurated. No active drainage Course - Re-evaluation Re-evalutation: 09/04/[address] Chen, hospitalist. He agrees with the plan for admission. Advised that I have given the patient cefepime and vancomycin. Advised of po sitive blood cultures as well as chest x-ray that is positive for pneumonia. Also advised that there is no evolving abscess to the back. Patient states that he does not use IV drugs. Dr. Chen asked me to have surgery follow along with the patient. Spoke with Dr. Mosqueda, general surgeon on-call. He will consult. He would like for the patient to be n.p.o. Impression: Pneumonia, bacteremia, abscess to the back. Patient will be admitted to the hospital for further management. Dr. Chen would like for the patient to go to a medical bed. Discussed this patient with my ER attending, Dr. Bellamy prior to conversation with hospitalist for admission. He agreed with the plan for admission. - Vital Signs Vital signs: Temp Pulse Resp BP Pulse Ox 98.1 F 74 37 H 132/78 H 98 09/04/19 11:43 09/04/19 11:43 09/04/19 14:01 09/04/19 14:00 09/04/19 14:01 - Laboratory Result Diagrams: 09/04/19 12:57 09/04/19 12:57 Laboratory results interpreted by me: 09/04/19 09/04/19 09/04/19 12:57 12:57 12:57 WBC 16.0 H Seg Neuts % (Manual) 87 H Lymphocytes % (Manual) 2 L Abs Neuts (Manual) 14.6 H Sodium 133.3 L Potassium 5.2 H Chloride 93 L Glucose 115 H Calcium 10.3 H Total Bilirubin 2.2 H Direct Bilirubin 1.1 H Alkaline Phosphatase 168 H NT-Pro-B Natriuret Pep 396 H - Diagnostic Test Radiology reviewed: Image reviewed, Reports reviewed Discharge - Discharge Clinical Impression: Bacteremia, Abscess of back Pneumonia Qualifiers: Pneumonia type: due to unspecified organism Laterality: right Lung location: lower lobe of lung Qualified Code(s): J18.9 - Pneumonia, unspecified organism Condition: Stable Disposition: ADMITTED INPATIENT Unit Admitted: Medical Floor
[2019-09-04] MEDS ORDERED: ALBUTEROL SULFATE 0.083% NEB 2.5 MG/3 ML AMPUL NEB ONE (13:45)
[2019-09-04] MEDS: NORMAL SALINE 1000 ML 1,000 ML IV PRN ×2 (13:49→13:51)
[2019-09-04 14:01] LABS: ABSOLUTE MONOCYTES # (MANUAL) 0.5 10^3/uL (0.1-1.4); BAND NEUTROPHILS % (MANUAL) 4 % (3-5); BASOPHILS % (MANUAL) 0 % (0-2); EOSINOPHILS % (MANUAL) 0 % (0-6); LYMPHOCYTES % (MANUAL) 2 % (13-45); MONOCYTES % (MANUAL) 3 % (3-13); SEGMENTED NEUTROPHILS % (MAN) 87 % (42-78); TOTAL CELLS COUNTED 100
[2019-09-04 14:03] LABS: PLATELET COMMENT ADEQUATE
--- NOTE | 2019-09-04 15:00 | RADIOLOGY REPORT (SQ) ---
EXAM DESCRIPTION: CHEST SINGLE VIEW COMPLETED DATE/TIME: 09/04/2019 2:40 pm REASON FOR STUDY: cough, chest pain COMPARISON: 09/02/2019 EXAM PARAMETERS: NUMBER OF VIEWS: One view. TECHNIQUE: Single frontal radiographic view of the chest acquired. RADIATION DOSE: NA LIMITATIONS: None. FINDINGS: LUNGS AND PLEURA: Patchy airspace disease in both lower lobes, left greater than right. M ore conspicuous in the right lobe compared to the prior. Small pleural effusions. MEDIASTINUM AND HILAR STRUCTURES: No masses. Contour normal. HEART AND VASCULAR STRUCTURES: Heart normal in size. Normal vasculature. BONES: No acute findings. HARDWARE: None in the chest. OTHER: No other significant finding. IMPRESSION: Rehydration versus progressing bilateral pneumonia. TECHNICAL DOCUMENTATION: JOB ID: [id number] [employer]- All Rights Reserved Reading location - IP/workstation name: [email or web address]
[2019-09-04] MEDS ORDERED: KETOROLAC TROMETHAMINE INJ/PF 30 MG/1 ML SDV IV ONE (15:23)
[2019-09-04] MEDS ORDERED: VANCOMYCIN HCL 0 MG in DEXTROSE 5%-WATER 250 ML IV NR (15:30)
[2019-09-04 16:58] LABS: URINE BARBITURATES SCREEN NEGATIVE; URINE BENZODIAZEPINES SCREEN NEGATIVE; URINE MARIJUANA (THC) SCREEN NEGATIVE; URINE METHADONE SCREEN NEGATIVE; URINE PHENCYCLIDINE SCREEN NEGATIVE
[2019-09-04 17:06] LABS: URINE COCAINE SCREEN NEGATIVE
--- NOTE | 2019-09-04 17:14 | PDOC H&P ---
History of Present Illness Admission Date/PCP: 09/04/19 15:09 Patient complains of: cough History of Present Illness: BETH NOLASCO is a 44 year old male who denies significant past medical history or prior diagnosis aside from scoliosis who initially presented to the ER with productive cough 2 days ago. He was found to have pneumonia and was sent home on levofloxacin. He had a blood culture drawn encounter and he was called back pain as it grew Staphylococcus aureus in 2 bottles. Upon encounter, he complains he continues to have cough and pleuritic chest pain. He is saturating well on room air. He says he has very mild but it is more because of the pleuritic discomfort. He also now reports that he noticed tenderness on his upper mid back. Have the bedside today and drinks 24 ounces of beer every 2 days. He denies drug use. Her mother will later told this provider that he snorts drugs sure what it is particularly. Past Medical History Medical History: None Psychiatric Medical History: Reports: Attention Deficit Hyperactivity Disorder - off meds 05/2019 Past Surgical History Past Surgical History: Reports: Appendectomy, Orthopedic Surgery - back sx Social History Lives with: Family Smoking Status: Current Every Day Smoker Electronic Cigarette use?: No Family History Family History: CAD, CVA, DM, Hyperlipidemia, Hypertension, Malignancy Parental Family History Reviewed: Yes - no premature CAD Children Family History Reviewed: No Sibling(s) Family History Reviewed.: No Medication/Allergy Home Medications: No Home Medications 09/04/19 Allergies/Adverse Reactions: codeine Allergy (Verified 09/04/19 12:06) venom-wasp [wasp venom] Allergy (Verified 09/04/19 12:06) Review of Systems All systems: reviewed and no additional remarkable complaints except as stated - as mentioned in HPI Physical Exam Vital Signs: Temp Pulse Resp BP Pulse Ox 98.1 F 74 37 H 132/78 H 98 09/04/19 11:43 09/04/19 11:43 09/04/19 14:01 09/04/19 14:00 09/04/19 14:01 Intake & Output 09/03/19 09/04/19 09/05/19 06:59 06:59 06:59 Intake Total 117 Balance 117 Weight 154 lb 5.177 oz General appearance: PRESENT: no acute distress, well-developed, well-nourished Head exam: PRESENT: atraumatic, normocephalic Eye exam: PRESENT: conjunctiva pink, EOMI, PERRLA. ABSENT: scleral icterus Ear exam: PRESENT: normal external ear exam Mouth exam: PRESENT: moist, tongue midline Neck exam: ABSENT: carotid bruit, JVD, lymphadenopathy, thyromegaly Respiratory exam: PRESENT: rhonchi. ABSENT: rales, wheezes Cardiovascular exam: PRESENT: RRR. ABSENT: diastolic murmur, rubs, systolic murmur Pulses: PRESENT: normal dorsalis pedis pul GI/Abdominal exam: PRESENT: normal bowel sounds, soft. ABSENT: distended, guarding, mass, organolmegaly, rebound, tenderness Rectal exam: PRESENT: deferred Extremities exam: PRESENT: full ROM. ABSENT: calf tenderness, clubbing, pedal edema Neurological exam: PRESENT: alert, awake, oriented to person, oriented to place, oriented to time, oriented to situation, CN II-XII grossly intact. ABSENT: motor sensory deficit Results Laboratory Results: 09/04/19 12:57 09/04/19 12:57 09/04/19 09/04/19 09/04/19 12:57 12:57 12:57 WBC 16.0 H RBC 4.69 Hgb 14.5 Hct 41.6 MCV 89 MCH 30.8 MCHC 34.7 RDW 12.5 Plt Count 293 Seg Neutrophils % Not Reportable Sodium 133.3 L Potassium 5.2 H Chloride 93 L Carbon Dioxide 30 Anion Gap 10 BUN 18 Creatinine 0.71 Est GFR ( Amer) > 60 Glucose 115 H Lactic Acid 2.0 Calcium 10.3 H Total Bilirubin 2.2 H AST 57 Alkaline Phosphatase 168 H Total Protein 6.6 Albumin 3.6 09/04/19 12:57 NT-Pro-B Natriuret Pep 396 H Impressions: Lumbar Spine X-Ray 09/04/19 12:12 IMPRESSION: Scoliosis. Mild degenerative disc changes. Chest X-Ray 09/04/19 13:41 IMPRESSION: Rehydration versus progressing bilateral pneumonia. Assessment and Plan - Diagnosis (1) Pneumonia Qualifiers: Pneumonia type: due to unspecified organism Laterality: right Lung location: lower lobe of lung Qualified Code(s): J18.9 - Pneumonia, unspecified organism Is this a current diagnosis for this admission?: Yes Plan: Start patient on IV antibiotics. Sputum culture ordered. Repeat chest x-ray today shows bilateral pneumonia. (2) Abscess of back Is this a current diagnosis for this admission?: Yes Plan: Patient has small tender nodulesl on the upper mid back. Upon spinal palpation, there is upper spinal tenderness 2-4 cm above/away from the nodules. Will pursue an MRI to rule out a spinal abscess given his staph bacteremia. (3) Bacteremia Is this a current diagnosis for this admission?: Yes Plan: Started IV vancomycin. Will order a TTE as well. - Time Time Spent with patient: 25-34 minutes
[2019-09-04] MEDS ORDERED: LORAZEPAM INJ 2 MG/1 ML VIAL IV ONE (17:45)
--- NOTE | 2019-09-04 19:56 | RADIOLOGY REPORT (SQ) ---
EXAM DESCRIPTION: MRI THORACIC SPINE COMBO COMPLETED DATE/TIME: 09/04/2019 7:35 pm REASON FOR STUDY: spinal tenderness,ro abscess staph bacteremia COMPARISON: None. TECHNIQUE: Sagittal and Axial imaging includes T1, T2, STIR and gradient echo sequences. T1 post ga dolinium sequences. CONTRAST TYPE AND DOSE: 15 mL Dotarem. RENAL FUNCTION: Not indicated. ACR Type II contrast agent associated with few, if any, unconfounded cases of NSF LIMITATIONS: None. FINDINGS: There is abnormal fluid with increased T1 and increased T2 signal in the dorsal epidural s pace, from the T2 level to the T10 level. This is most prominent from T7 through T9, where a heterog eneous signal dorsal epidural fluid collection with peripheral rim enhancement measuring about 6 cm i n greatest craniocaudad length is present. This causes partial effacement of the CSF around the thor acic cord from the T6-7 disc level down to the T8-9 disc level. No abnormal intrinsic cord signal or enhancement. Findings are worrisome for dorsal epidural abscess. Findings discussed with Dr. Prieto rt, 1945 hours 09/04/2019. There is subtle increased STIR signal of the paraspinal muscles throughout the right thoracic region from about T5 through T12. Findings are worrisome for myositis. No rim enhancing intramuscular absc ess is identified. Lung parenchyma is difficult to evaluate on MRI, however multiple small 1 cm foci of airspace disease are present throughout both lungs worrisome for septic emboli. Trace right pleural effusion. BONY ALIGNMENT: Normal. VERTEBRAE: Intact. BONE MARROW: Normal. No marrow signal abnormality worrisome for vertebral body osteomyelitis. HARDWARE: None in the spine. CORD: Normal in size and signal intensity. SOFT TISSUES: No soft tissue masses. THORACIC DISCS T1-T12: No significant spinal stenosis or exit foraminal stenosis. No abnormal disc e nhancement worrisome for discitis. IMPRESSION: Dorsal epidural abscess most pronounced from T7 through T9, with partial effacement of t he CSF around the thoracic cord. No cord flattening or abnormal intrinsic cord enhancement. Lung findings worrisome for septic emboli COMMENT: Pertinent findings on the imaging study reported as a CRITICAL RESULT to SAM LESTER at19:4 0 on 09/04/2019. Category of Critical Result: DORSAL EPIDURAL ABSCESS TECHNICAL DOCUMENTATION: JOB ID: [id number] [employer]- All Rights Reserved Reading location - IP/workstation name: [email or web address]
[2019-09-04 20:01] LABS: APPEARANCE,URINE CLEAR; BILIRUBIN,URINE SMALL (NEGATIVE); COLOR,URINE AMBER; GLUCOSE, URINE NEGATIVE (NEGATIVE); KETONES,URINE NEGATIVE (NEGATIVE); LEUKOCYTE ESTERASE,URINE NEGATIVE (NEGATIVE); NITRITE,URINE NEGATIVE (NEGATIVE); PROTEIN,URINE 100 mg/dL (NEGATIVE); URINE SPECIFIC GRAVITY 1.034
--- NOTE | 2019-09-04 22:05 | XCELERA REPORT ---
[address] [address] Transthoracic Echocardiogram Report Name: BETH NOLASCO Age: 44 yrs Gender: Male : 1975 Patient Status: Inpatient Patient Location: [place] [address]^A Study Date: 09/04/2019 07:48 PM Height: 73 in Weight: 154 lb BSA: 1.9 m2 Procedure: A two-dimensional transthoracic echocardiogram with color flow and Doppler was performed. Study Quality: Good. Reason For Study: BACTEREMIA, ASSESS VALVULAR ENDOCARDITIS History: BACTEREMIA, ASSESS VALVULAR ENDOCAR. Ordering Physician: AMBER FLORES Performed By: Maite Reich Interpretation Summary No defenite evidence of valvular endocarditis.If clinical suspicion is high , recommend XENIA. The left ventricle is normal in size. There is normal left ventricular wall thickness. LV EF is 65% Left ventricular systolic function is normal. Doppler measurements suggest normal left ventricular diastolic function The left ventricular wall motion is normal. There is no thrombus. There is no ventricular septal defect visualized. The right ventricle is normal in size and function. The right atrium is normal. The left atrial size is normal. The interatrial septum is intact with no evidence for an atrial septal defect. There is no Doppler evidence for an interatrial shunt There is no evidence of mitral valve prolapse. The mitral valve leaflets appear thickened, but open well. There is no vegetation seen on the mitral valve. There is no mitral valve stenosis. There is a trace amount of mitral regurgitation There is no aortic valvular vegetation. There is no aortic valve stenosis There is no LVOT obstruction. No aortic regurgitation is present. There is no tricuspid stenosis. There is a trace to mild amount of tricuspid regurgitation There is mild pulmonary hypertension by echo RVSP is 36 to 41 mm of Hg , with RA mean of 5 to 10. There is no vegetation on the pulmonic valve. There is no pulmonic valvular stenosis. There is a trace amount of pulmonic regurgitation The aortic root is normal size. The inferior vena cava appeared normal and decreased > 50% with respiration (RAP 5-10 mmHg) There is no pericardial effusion. No defenite evidence of valvular endocarditis.If clinical suspicion is high , recommend XENIA. MMode/2D Measurements & Calculations RVDd: 1.9 cm LVIDd: 5.1 cm FS: 36.5 % Ao root diam: 3.0 cm IVSd: 0.94 cm LVIDs: 3.2 cm EDV(Teich): Ao root area: LVPWd: 0.92 cm 124.2 ml 7.3 cm2 ESV(Teich): 42.3 mlLA dimension: 2.5 cm EF(Teich): 66.0 % LVLd ap4: 7.2 cm SV(MOD-sp4): EDV(MOD-sp4): 51.0 ml 81.0 ml LVLs ap4: 5.5 cm ESV(MOD-sp4): 30.0 ml EF(MOD-sp4): 63.0 % Doppler Measurements & Calculations MV E max amalia: MV P1/2t max amalai: Ao V2 max: LV V1 max P.6 cm/sec 125.1 cm/sec 175.5 cm/sec 9.5 mmHg MV A max amalia: MV P1/2t: 48.2 msec Ao max PG: LV V1 max: 81.9 cm/sec MVA(P1/2t): 4.6 cm2 12.3 mmHg 154.2 cm/sec MV E/A: 1.3 MV dec slope: 760.3 cm/sec2 MV dec time: 0.18 sec PA V2 max: PI end-d amalia: TR max amalia: MV P1/2t-pr_phl: 102.7 cm/sec 107.2 cm/sec 279.2 cm/sec 48.2 msec PA max P.2 mmHg TR max P.2 mmHg Left Ventricle The left ventricle is normal in size. There is normal left ventricular wall thickness. LV EF is 65%. Left ventricular systolic function is normal. Doppler measurements suggest normal left ventricular diastolic function. The left ventricular wall motion is normal. There is no thrombus. There is no ventricular septal defect visualized. Right Ventricle The right ventricle is normal in size and function. Atria The right atrium is normal. The left atrial size is normal. The interatrial septum is intact with no evidence for an atrial septal defect. There is no Doppler evidence for an interatrial shunt. Mitral Valve The mitral valve leaflets appear thickened, but open well. There is no evidence of mitral valve prolapse. There is no vegetation seen on the mitral valve. There is no mitral valve stenosis. There is a trace amount of mitral regurgitation. Aortic Valve There is no aortic valvular vegetation. There is no aortic valve stenosis. There is no LVOT obstruction. No aortic regurgitation is present. Tricuspid Valve There is no tricuspid valve vegetation. There is no tricuspid stenosis. There is a trace to mild amount of tricuspid regurgitation. There is mild pulmonary hypertension by echo. RVSP is 36 to 41 mm of Hg , with RA mean of 5 to 10. Pulmonic Valve There is no vegetation on the pulmonic valve. There is no pulmonic valvular stenosis. There is a trace amount of pulmonic regurgitation. Great Vessels The aortic root is normal size. The inferior vena cava appeared normal and decreased > 50% with respiration (RAP 5-10 mmHg). Effusions There is no pericardial effusion. : AMBER FLORES Lakshmi
--- NOTE | 2019-09-04 22:06 | PDOC TRANSFER SUMMARY ---
General Admission Date/PCP: 09/04/19 15:09 Admission Date: 09/04/19 Transfer Date: 09/04/19 Accepting Facility: [facility] Resuscitation Status: Full Code - Transfer Medications Home Medications: No Home Medications 09/04/19 Transfer Medications: Current Medications Heparin Sodium (Porcine) (Heparin Inj 5,000 Units/Ml 1 Ml Vial) 5,000 unit SUBCUT Q8 ADRY Stop: 10/04/19 21:59 Cefepime HCl (Maxipime Rtu 1 Gm/D5w 50 Ml Premix Bag) 1 gm in 50 mls @ 100 mls/hr IV Q12 ADRY Stop: 09/11/19 21:59 Vancomycin HCl 1,000 mg/ (Dextrose) 250 mls @ 166.667 mls/hr IV Q8@0700,1500,2300 ADRY Stop: 09/11/19 22:59 Ketorolac Tromethamine (Toradol Inj/Pf 30 Mg/1 Ml Sdv) 30 mg IV Q6HP PRN PRN Reason: FOR PAIN Stop: 09/09/19 15:22 Morphine Sulfate (Morphine 10 Mg/Ml Inj) 3 mg IV Q4HP PRN PRN Reason: pain not rel by Toradol Stop: 09/11/19 15:22 - Allergies Allergies/Adverse Reactions: codeine Allergy (Verified 09/04/19 12:06) venom-wasp [wasp venom] Allergy (Verified 09/04/19 12:06) Hospital Course Hospital Course: 44-year-old smoker with ADHD who was seen in the emergency room 48 hours ago diagnosed with pneumonia discharged home with Levaquin. Blood cultures returned positive for MRSA and the patient was referred back to the emergency department. Patient symptoms worsened developing pleuritic chest pain and mid back pain prompting a spinal MRI notable for large dorsal subdural abscess with effacement. Patient is without neurologic complaint or deficit. Patient is placed on bedrest and notified of urgency of transfer. Vancomycin is initiated. Discussion with neurosurgery and hospitalist service at [facility] in [place] whom graciously accept his transfer. He is in stable condition for transfer. Physical Exam Vital Signs: Temp Pulse Resp BP Pulse Ox 100.6 F H 74 35 H 124/70 95 09/04/19 21:27 09/04/19 11:43 09/04/19 18:01 09/04/19 18:00 09/04/19 18:01 Intake & Output 09/03/19 09/04/19 09/05/19 11:59 11:59 11:59 Intake Total 2150 Balance 2150 Weight 70 kg General appearance: PRESENT: cooperative, mild distress Head exam: PRESENT: atraumatic, normocephalic Eye exam: PRESENT: conjunctiva pink, EOMI, PERRLA. ABSENT: scleral icterus Ear exam: PRESENT: normal external ear exam Mouth exam: PRESENT: moist, tongue midline Neck exam: ABSENT: carotid bruit, JVD, lymphadenopathy, thyromegaly Respiratory exam: PRESENT: chest wall tenderness, crackles, rhonchi, tachypnea. ABSENT: rales, wheezes Cardiovascular exam: PRESENT: RRR. ABSENT: diastolic murmur, rubs, systolic murmur Pulses: PRESENT: normal dorsalis pedis pul Vascular exam: PRESENT: normal capillary refill GI/Abdominal exam: PRESENT: normal bowel sounds, soft. ABSENT: distended, guarding, mass, organolmegaly, rebound, tenderness Rectal exam: PRESENT: deferred Extremities exam: PRESENT: full ROM. ABSENT: calf tenderness, clubbing, pedal edema Neurological exam: PRESENT: alert, awake, oriented to person, oriented to place, oriented to time, oriented to situation, CN II-XII grossly intact. ABSENT: motor sensory deficit Psychiatric exam: PRESENT: appropriate affect, normal mood. ABSENT: homicidal ideation, suicidal ideation Skin exam: PRESENT: dry, intact, warm. ABSENT: cyanosis, rash Results Laboratory Results: 09/04/19 12:57 09/04/19 12:57 09/04/19 09/04/19 09/04/19 12:57 12:57 12:57 WBC 16.0 H RBC 4.69 Hgb 14.5 Hct 41.6 MCV 89 MCH 30.8 MCHC 34.7 RDW 12.5 Plt Count 293 Seg Neutrophils % Not Reportable Sodium 133.3 L Potassium 5.2 H Chloride 93 L Carbon Dioxide 30 Anion Gap 10 BUN 18 Creatinine 0.71 Est GFR ( Amer) > 60 Glucose 115 H Lactic Acid 2.0 Calcium 10.3 H Total Bilirubin 2.2 H AST 57 Alkaline Phosphatase 168 H Total Protein 6.6 Albumin 3.6 Urine Color Urine Appearance Urine pH Ur Specific [place] Urine Protein Urine Glucose (UA) Urine Ketones Urine Blood Urine Nitrite Ur Leukocyte Esterase Urine WBC (Auto) Urine RBC (Auto) 09/04/19 16:30 WBC RBC Hgb Hct MCV MCH MCHC RDW Plt Count Seg Neutrophils % Sodium Potassium Chloride Carbon Dioxide Anion Gap BUN Creatinine Est GFR ( Amer) Glucose Lactic Acid Calcium Total Bilirubin AST Alkaline Phosphatase Total Protein Albumin Urine Color AMNA Urine Appearance CLEAR Urine pH 5.0 Ur Specific [place] 1.034 Urine Protein 100 H Urine Glucose (UA) NEGATIVE Urine Ketones NEGATIVE Urine Blood NEGATIVE Urine Nitrite NEGATIVE Ur Leukocyte Esterase NEGATIVE Urine WBC (Auto) 0 Urine RBC (Auto) 2 09/04/19 12:57 NT-Pro-B Natriuret Pep 396 H Impressions: Lumbar Spine X-Ray 09/04/19 12:12 IMPRESSION: Scoliosis. Mild degenerative disc changes. Chest X-Ray 09/04/19 13:41 IMPRESSION: Rehydration versus progressing bilateral pneumonia. Thoracic Spine MRI 09/04/19 15:22 IMPRESSION: Dorsal epidural abscess most pronounced from T7 through T9, with partial effacement of the CSF around the thoracic cord. No cord flattening or abnormal intrinsic cord enhancement. Lung findings worrisome for septic emboli Plan Discharge Plan: Transfer to tertiary care pending Time Spent: Greater than 30 Minutes
[2019-09-04] MEDS: CEFEPIME 1 GM/D5W RTU 1 GM/50 ML RTUPB IV SCH (22:14)
--- NOTE | 2019-09-04 22:24 | PDOC CONSULTATION ---
Consultation Consult Date: 09/04/19 Provider Consulted: JULIEN WEBER History of Present Illness Admission Date/PCP: 09/04/19 15:09 Patient complains of: Back pain History of Present Illness: BETH NOLASCO is a 44 year old male currently being hospitalized for bilateral pneumonia with positive blood cultures noted with focal swelling and redness and pain at the mid back with no drainage. Patient denies any prior history of a lump in this region. Surgery service being consulted to evaluate this region for need for possible debridement. Past Medical History Psychiatric Medical History: Reports: Attention Deficit Hyperactivity Disorder - off meds 05/2019 Past Surgical History Past Surgical History: Reports: Appendectomy, Orthopedic Surgery - back sx Social History Lives with: Family Smoking Status: Current Every Day Smoker Electronic Cigarette use?: No Family History Family History: CAD, CVA, DM, Hyperlipidemia, Hypertension, Malignancy Parental Family History Reviewed: Yes Children Family History Reviewed: Yes Sibling(s) Family History Reviewed.: Yes Medication/Allergy Home Medications: No Home Medications 09/04/19 Allergies/Adverse Reactions: codeine Allergy (Verified 09/04/19 12:06) venom-wasp [wasp venom] Allergy (Verified 09/04/19 12:06) Physical Exam Vital Signs: Temp Pulse Resp BP Pulse Ox 101.1 F H 74 35 H 124/70 95 09/04/19 18:26 09/04/19 11:43 09/04/19 18:01 09/04/19 18:00 09/04/19 18:01 Intake & Output 09/03/19 09/04/19 09/05/19 06:59 06:59 06:59 Intake Total 2150 Balance 2150 Weight 70 kg General appearance: PRESENT: severe distress Respiratory exam: PRESENT: chest wall tenderness - Generalized chest wall tenderness with no crepitus and no erythema other than at his mid back left of midline there is a region of erythema with underlying palpable approximately 2 cm lump without induration and without fluctuance and without any drainage. This area however is tender. But the tenderness and the erythema appears to be more diffuse than the underlying small lump. Patient also has diffuse tenderness right of his spine along his right paraspinous muscle region., other - Diminished bilateral breath sounds Results Laboratory Results: 09/04/19 12:57 09/04/19 12:57 09/04/19 09/04/19 09/04/19 12:57 12:57 12:57 WBC 16.0 H RBC 4.69 Hgb 14.5 Hct 41.6 MCV 89 MCH 30.8 MCHC 34.7 RDW 12.5 Plt Count 293 Seg Neutrophils % Not Reportable Sodium 133.3 L Potassium 5.2 H Chloride 93 L Carbon Dioxide 30 Anion Gap 10 BUN 18 Creatinine 0.71 Est GFR ( Amer) > 60 Glucose 115 H Lactic Acid 2.0 Calcium 10.3 H Total Bilirubin 2.2 H AST 57 Alkaline Phosphatase 168 H Total Protein 6.6 Albumin 3.6 Urine Color Urine Appearance Urine pH Ur Specific [place] Urine Protein Urine Glucose (UA) Urine Ketones Urine Blood Urine Nitrite Ur Leukocyte Esterase Urine WBC (Auto) Urine RBC (Auto) 09/04/19 16:30 WBC RBC Hgb Hct MCV MCH MCHC RDW Plt Count Seg Neutrophils % Sodium Potassium Chloride Carbon Dioxide Anion Gap BUN Creatinine Est GFR ( Amer) Glucose Lactic Acid Calcium Total Bilirubin AST Alkaline Phosphatase Total Protein Albumin Urine Color AMNA Urine Appearance CLEAR Urine pH 5.0 Ur Specific [place] 1.034 Urine Protein 100 H Urine Glucose (UA) NEGATIVE Urine Ketones NEGATIVE Urine Blood NEGATIVE Urine Nitrite NEGATIVE Ur Leukocyte Esterase NEGATIVE Urine WBC (Auto) 0 Urine RBC (Auto) 2 09/04/19 12:57 NT-Pro-B Natriuret Pep 396 H Impressions: Lumbar Spine X-Ray 09/04/19 12:12 IMPRESSION: Scoliosis. Mild degenerative disc changes. Chest X-Ray 09/04/19 13:41 IMPRESSION: Rehydration versus progressing bilateral pneumonia. Thoracic Spine MRI 09/04/19 15:22 IMPRESSION: Dorsal epidural abscess most pronounced from T7 through T9, with partial effacement of the CSF around the thoracic cord. No cord flattening or abnormal intrinsic cord enhancement. Lung findings worrisome for septic emboli Assessment & Plan - Diagnosis (1) Sebaceous cyst Is this a current diagnosis for this admission?: Yes Plan: There does appear to be a small sebaceous cyst on his back but it does not explain the diffuse tenderness in his back region. Patient had underwent MRI which demonstrated a large subdural abscess and is pending transfer.
[2019-09-04] MEDS: KETOROLAC TROMETHAMINE INJ/PF 30 MG/1 ML SDV IV PRN (22:59)
[2019-09-04] MEDS: HEPARIN SOD (PORCINE) 5,000 UNIT/ML 1 ML VIAL SUBCUT SCH (23:14)
[2019-09-04] MEDS: MORPHINE SULFATE 10 MG/ML INJ IV PRN (23:46)
[2019-09-04] MEDS: VANCOMYCIN HCL 1,000 MG in DEXTROSE 5%-WATER 250 ML IV SCH (23:54)
[2019-09-05] MEDS: NORMAL SALINE 1000 ML 1,000 ML IV PRN ×3 (01:28→18:46)
[2019-09-05] MEDS: MORPHINE SULFATE 10 MG/ML INJ IV PRN ×2 (04:26→12:19)
[2019-09-05] MEDS: HEPARIN SOD (PORCINE) 5,000 UNIT/ML 1 ML VIAL SUBCUT SCH ×3 (06:02→22:06)
[2019-09-05] MEDS: KETOROLAC TROMETHAMINE INJ/PF 30 MG/1 ML SDV IV PRN (06:16)
[2019-09-05] MEDS: VANCOMYCIN HCL 1,000 MG in DEXTROSE 5%-WATER 250 ML IV SCH ×2 (07:37→15:39)
[2019-09-05 07:53] LABS: HEMATOCRIT 36.8 % (37.9-51.0); HEMOGLOBIN 12.6 g/dL (13.5-17.0); MEAN CORPUSCULAR HEMOGLOBIN 30.4 pg (27.0-33.4); MEAN CORPUSCULAR HGB CONC 34.2 g/dL (32.0-36.0); MEAN CORPUSCULAR VOLUME 89 fl (80-97); PLATELET COUNT 220 10^3/uL (150-450); RED BLOOD COUNT 4.14 10^6/uL (4.35-5.55); RED CELL DISTRIBUTION WIDTH 12.4 % (11.5-14.0); WHITE BLOOD COUNT 13.4 10^3/uL (4.0-10.5)
[2019-09-05] MEDS ORDERED: MORPHINE SULFATE 10 MG/ML INJ IV ONE ×2 (07:59→14:53)
--- NOTE | 2019-09-05 08:00 | ER Document Report ---
Doctor's Note Notes: 09/05/19 08:00 Patient reassessed this morning approximately 7:45 AM. Patient states he still having a lot of back pain. However he denies any problems moving his lower extremities. He can flex and extend all toes and is able to lift both legs off the bed. Patient does ask for some more morphine to help with his pain. His vital signs are stable.
[2019-09-05 08:15] LABS: ALBUMIN 2.5 g/dL (3.5-5.0); ALKALINE PHOSPHATASE 126 U/L (38-126); ANION GAP 6 (5-19); ASPARTATE AMINO TRANSFERASE 36 U/L (17-59); BILIRUBIN,DIRECT 0.9 mg/dL (0.0-0.4); BILIRUBIN,TOTAL 1.2 mg/dL (0.2-1.3); BLOOD UREA NITROGEN 18 mg/dL (7-20); CALCIUM 9.3 mg/dL (8.4-10.2); CARBON DIOXIDE 27 mmol/L (22-30); CHLORIDE 99 mmol/L (98-107); GLUCOSE 102 mg/dL (75-110); TOTAL PROTEIN 5.1 g/dL (6.3-8.2)
[2019-09-05 08:32] LABS: POTASSIUM 4.1 mmol/L (3.6-5.0)
[2019-09-05 08:34] LABS: ABSOLUTE LYMPHOCYTES# (MANUAL) 0.9 10^3/uL (0.5-4.7); ABSOLUTE MONOCYTES # (MANUAL) 0.7 10^3/uL (0.1-1.4); BAND NEUTROPHILS % (MANUAL) 4 % (3-5); BASOPHILS % (MANUAL) 0 % (0-2); EOSINOPHILS % (MANUAL) 0 % (0-6); LYMPHOCYTES % (MANUAL) 3 % (13-45); MONOCYTES % (MANUAL) 5 % (3-13); SEGMENTED NEUTROPHILS % (MAN) 84 % (42-78); TOTAL CELLS COUNTED 100
[2019-09-05 08:35] LABS: PLATELET COMMENT ADEQUATE
[2019-09-05 08:38] LABS: SCHISTOCYTES SLIGHT
[2019-09-05 08:39] LABS: BURR CELLS SLIGHT
[2019-09-05] MEDS: CEFEPIME 1 GM/D5W RTU 1 GM/50 ML RTUPB IV SCH ×2 (10:05→22:05)
--- NOTE | 2019-09-05 14:24 | EKG REPORT ---
SEVERITY:- ABNORMAL ECG - SINUS RHYTHM LEFT VENTRICULAR HYPERTROPHY ST ELEV, PROBABLE NORMAL EARLY REPOL PATTERN : Confirmed by: Glenn Spaulding 05-Sep-2019 14:24:04
[2019-09-05 15:33] LABS: VANCOMYCIN,TROUGH 7.9 ug/mL (5.0-20.0)
[2019-09-05] MEDS: HYDROMORPHONE HCL INJ/PF 2 MG/ML AMPULE IV PRN ×2 (17:58→22:04)
--- NOTE | 2019-09-05 18:44 | Progress Note ---
Provider Note Provider Note: Patient's MRI did come back remarkable for a thoracic epidural abscess extending from T2-T10 and most prominent on T7-T9. Patient is awaiting transfer to [facility]. He says his pain is slightly improved with current regimen but he continues to require IV pain medications. No sensory or motor deficit so far on reassessment today. Denies focal weakness or numbness or tingling sensation at this time. Also discussed with [facility] neurosurgery PA, Angel Otero who has requested a copy of patient's MRI for them to review. [facility] does not have an available bed at this time as well and is unable to accept transfers.
[2019-09-05] MEDS ORDERED: ACETAMINOPHEN 325 MG TABLET PO ONE (20:53)
[2019-09-06] MEDS: VANCOMYCIN HCL 1,500 MG in DEXTROSE 5%-WATER 250 ML IV SCH ×4 (00:05→22:28)
[2019-09-06] MEDS: NORMAL SALINE 1000 ML 1,000 ML IV PRN ×2 (01:52→07:03)
[2019-09-06] MEDS: KETOROLAC TROMETHAMINE INJ/PF 30 MG/1 ML SDV IV PRN ×3 (01:52→21:27)
[2019-09-06] MEDS: HEPARIN SOD (PORCINE) 5,000 UNIT/ML 1 ML VIAL SUBCUT SCH ×3 (06:15→21:34)
[2019-09-06] MEDS: HYDROMORPHONE HCL INJ/PF 2 MG/ML AMPULE IV PRN ×4 (06:16→22:31)
[2019-09-06] MEDS ORDERED: VANCOMYCIN HCL INJ 500 MG VIAL ONE ×2 (06:49→14:11)
[2019-09-06] MEDS ORDERED: VANCOMYCIN HCL INJ 1000 MG VIAL ONE ×2 (06:49→14:11)
[2019-09-06] MEDS ORDERED: CEFEPIME 1 GM/D5W RTU 1 GM/50 ML RTUPB IV ONE (10:46)
[2019-09-06] MEDS: CEFEPIME 1 GM/D5W RTU 1 GM/50 ML RTUPB IV SCH ×2 (10:48→21:33)
[2019-09-06] MEDS ORDERED: KETOROLAC TROMETHAMINE INJ/PF 30 MG/1 ML SDV ONE (10:55)
--- NOTE | 2019-09-06 17:08 | Progress Note ---
Provider Note Provider Note: 09/05: Patient's MRI did come back remarkable for a thoracic epidural abscess extending from T2-T10 and most prominent on T7-T9. Patient is awaiting transfer to [facility]. He says his pain is slightly improved with current regimen but he continues to require IV pain medications. No sensory or motor deficit so far on reassessment today. Denies focal weakness or numbness or tingling sensation at this time. Also discussed with [facility] neurosurgery PA, Angel Otero who has requested a copy of patient's MRI for them to review. [facility] does not have an available bed at this time as well and is unable to accept transfers. 09/06: No acute issues overnight. Patient still awaiting bed availability at [facility]. Still complains of back pain but this is improved after revising his pain regimen yesterday. On reassessment and neuro examination, he remains intact with no sensory or motor deficits.
[2019-09-07] MEDS: NORMAL SALINE 1000 ML 1,000 ML IV PRN ×2 (00:05→08:03)
[2019-09-07] MEDS: HYDROMORPHONE HCL INJ/PF 2 MG/ML AMPULE IV PRN ×3 (01:32→07:41)
[2019-09-07] MEDS: KETOROLAC TROMETHAMINE INJ/PF 30 MG/1 ML SDV IV PRN (04:04)
[2019-09-07] MEDS: HEPARIN SOD (PORCINE) 5,000 UNIT/ML 1 ML VIAL SUBCUT SCH (06:57)
[2019-09-07 07:34] LABS: VANCOMYCIN,TROUGH 9.8 ug/mL (5.0-20.0)
[2019-09-07 08:08] VITALS: BP 135/70
--- NOTE | 2019-09-07 08:23 | ER Document Report ---
Doctor's Note Notes: 09/07/19 08:22 Transport is here to take the patient to [facility]. Vital signs are stable. Patient is stable for transfer. The nurse recently told me that he was still waiting for vancomycin trough level before his next dose.
--- NOTE | 2019-09-07 09:36 | Progress Note ---
Provider Note Provider Note: [facility] Telephone advice Consultation Chart reviewed. Patient is a 46 yo man that was admitted due to MRSA bacteremia. He was recently in the ED on 09/02 and was evaluated for pneumonia. HE was sent home on Levofloxacin but blood cultures came back positive for MRSA. He was called back and he was seen in the ED. HE was complaining of severe back oain for which he was evaluated by surgery, An MRI of [facility] back demonstrated an epidural abscess from T7-T9. Blood cultures on 09/04 and 09/06 also positive. Chest imaging concerning for septic pulmonary emboli. TTE negative for vegetations. Per notes, patient continues with back pain, but no neurological deficits. He was already accepted at [facility] awaiting bed also consulted at [facility] but no beds available. Patient is on vancomcyin and cefepime. ID consulted for recommendations. PMH: Scoliosis Drug abuse (snorts) PSH: Back surgery appendectomy Allergies: codeine Allergy (Verified 09/04/19 12:06) venom-wasp [wasp venom] Allergy (Verified 09/04/19 12:06) Medications: No Home Medications 09/04/19 Vital Signs: Temp Pulse Resp BP Pulse Ox 99 F 83 28 H 135/70 H 99 09/07/19 08:00 09/05/19 20:22 09/07/19 08:01 09/07/19 08:00 09/07/19 08:01 Intake & Output 09/06/19 09/07/19 09/08/19 06:59 06:59 06:59 Intake Total 3850 3600 3 Output Total 350 Balance 3850 3250 3 Weight 74.2 kg Weight/Height Weight 74.2 kg Height 6 ft 1 in Laboratories: 09/05/19 07:43 09/07/19 06:57 MCV 89 fl (80-97) 09/05/19 07:43 MCH 30.4 pg (27.0-33.4) 09/05/19 07:43 MCHC 34.2 g/dL (32.0-36.0) 09/05/19 07:43 RDW 12.4 % (11.5-14.0) 09/05/19 07:43 Seg Neutrophils % Not Reportable 09/05/19 07:43 Chloride 99 mmol/L (98-107) 09/05/19 07:43 Carbon Dioxide 27 mmol/L (22-30) 09/05/19 07:43 Anion Gap 6 (5-19) 09/05/19 07:43 Est GFR ( Amer) > 60 (>60) 09/07/19 06:57 Glucose 102 mg/dL (75-110) 09/05/19 07:43 Lactic Acid 2.0 mmol/L (0.7-2.1) 09/04/19 12:57 Calcium 9.3 mg/dL (8.4-10.2) 09/05/19 07:43 Total Bilirubin 1.2 mg/dL (0.2-1.3) 09/05/19 07:43 AST 36 U/L (17-59) 09/05/19 07:43 Alkaline Phosphatase 126 U/L (38-126) 09/05/19 07:43 Total Protein 5.1 g/dL (6.3-8.2) L 09/05/19 07:43 Albumin 2.5 g/dL (3.5-5.0) L 09/05/19 07:43 Urine Color AMNA 09/04/19 16:30 Urine Appearance CLEAR 09/04/19 16:30 Urine pH 5.0 (5.0-9.0) 09/04/19 16:30 Ur Specific [place] 1.034 09/04/19 16:30 Urine Protein 100 mg/dL (NEGATIVE) H 09/04/19 16:30 Urine Glucose (UA) NEGATIVE mg/dL (NEGATIVE) 09/04/19 16:30 Urine Ketones NEGATIVE mg/dL (NEGATIVE) 09/04/19 16:30 Urine Blood NEGATIVE (NEGATIVE) 09/04/19 16:30 Urine Nitrite NEGATIVE (NEGATIVE) 09/04/19 16:30 Ur Leukocyte Esterase NEGATIVE (NEGATIVE) 09/04/19 16:30 Urine WBC (Auto) 0 /HPF 09/04/19 16:30 Urine RBC (Auto) 2 /HPF 09/04/19 16:30 09/06/19 14:59 Blood Blood Culture (PCR) - Final Staphylococcus Aureus 09/04/19 15:00 Blood Blood Culture (PCR) - Final Staphylococcus Aureus 09/04/19 13:50 Blood Blood Culture (PCR) - Final Staphylococcus Aureus 09/02/19 Blood MRSA 09/04/19 12:57 NT-Pro-B Natriuret Pep 396 H Radiology: Lumbar Spine X-Ray 09/04/19 12:12 IMPRESSION: Scoliosis. Mild degenerative disc changes. Chest X-Ray 09/04/19 13:41 IMPRESSION: Rehydration versus progressing bilateral pneumonia. Thoracic Spine MRI 09/04/19 15:22 IMPRESSION: Dorsal epidural abscess most pronounced from T7 through T9, with partial effacement of the CSF around the thoracic cord. No cord flattening or abnormal intrinsic cord enhancement. Lung findings worrisome for septic emboli Assessment and Recommendations: Patient evaluated (chart reviewed) due to MRSA bacteremia with septic pulmonary emboli and T7-T9 epidural abscess. He is on vancomycin and cefepime. Source of bacteremia not clear as he was initially evaluated by pneumonia but it was septic pulmonary emboli, he has probably been bacteremic for a while. He needs drainage of the epidural abscess for source control. He will also need a XENIA to rule out endocarditis. Vancomycin is adequate for now, with a trough of 15-20, monitor GFR. Cefepime not needed. Should also assess for other metastatic foci of infection. He will be transferred to [facility] for neurosurgery intervention, [facility] can be consulted there to take over ID care. Keira Cabello MD [facility] [id number]
--- NOTE | 2019-09-07 20:30 | ER Document Report ---
Doctor's Note Notes: 09/07/19 20:27 It was brought to my attention that the patient had positive blood cultures and he was growing MRSA. I called [facility], where the patient was transferred. I spoke with HARDEEP Donovan, the charge nurse. She will relay the information on to the hospitalist.
[2019-09-10 07:19] LABS: AMPHETAMINE CONFIRMATION UR Positive (.)
== END 2019-09-07 08:15 | disposition home or self-care (01) | DRG 94 ==
LOC: ER 11:14 → EH 15:09 → UNDOADMIN 15:09 → EH 15:24 → ER 09-07 08:15
PROVIDERS: ADMIT Internal Medicine; ATTEND Internal Medicine
DX: G06.1 Intraspinal abscess and granuloma (principal); J18.9 Pneumonia, unspecified organism; R78.81 Bacteremia; L02.212 Cutaneous abscess of back [any part, except buttock and flank]; F17.210 Nicotine dependence, cigarettes, uncomplicated; L72.3 Sebaceous cyst; M41.9 Scoliosis, unspecified; B95.62 Methicillin resistant Staphylococcus aureus infection as the cause of diseases classified elsewhere; Z91.038 Other insect allergy status; M54.9 Dorsalgia, unspecified; R05 Cough; R07.9 Chest pain, unspecified; R06.02 Shortness of breath; R50.9 Fever, unspecified; Z88.6 Allergy status to analgesic agent
CPT/HCPCS: 36415; 71045; 72110; 72157; 80053; 80202; 80307; 80361; 81001; 82565; 83605; 83880; 85025; 86701; 87040; 87077; 87150; 87186; 93005; 93010; 93306; 94640; 96365; 96366; 96368; 96375; 99285; A9576; G0480; J0692; J1170; J1644; J1885; J2060; J2270; J3370; J7030; J7050; J7060; J7620

== ENCOUNTER 2020-02-26 14:48 | Emergency (ER) | payer SELFPAY ==
[2020-02-26 15:01] VITALS: BP 131/80
--- NOTE | 2020-02-26 15:27 | ER Document Report ---
ED Medical Screen (RME) - General Chief Complaint: Rib Pain Stated Complaint: RIB PAIN TRAVEL OUTSIDE OF THE [place] IN LAST 30 DAYS: No - HPI Notes: 02/26/20 15:18 44 yr old male with a hx of MRSA and thoracic epidural abscess in sep 2019 presents with complaints of L chest, L rib and L thoracic back pain since December 2019. reports pain is sharp and stabbing and becoming worse with time. pt was seen by his PCP for left rib pain in January 2020, which then referred to him to surgeon for further evaluation, but was unsure why he was referred to a surgeon. He was unable to follow-up with surgeon and pain became severe so he came to the emergency room today is not on currently on any abx. denies a hx of IV drug use. denies any bowel or bladder dysfunction, no fevers and chills. denies any trauma or recent injury to his rib. denies cp, n/v/d. reports sob with deep breaths but has related this to his rib injury. I have greeted and performed a rapid initial assessment of this patient. A comprehensive ED assessment and evaluation of the patient, analysis of test results and completion of the medical decision making process will be conducted by additional ED providers. PHYSICAL EXAMINATION: GENERAL: Well-appearing, well-nourished and in no acute distress. HEAD: Atraumatic, normocephalic. EYES: Pupils equal round extraocular movements intact, conjunctiva are normal. NECK: Normal range of motion CV: s1, s2 regular LUNGS: No respiratory distress. Left-sided tenderness on intercostal spaces from #4-#7, no step-off noted Musculoskeletal: Normal range of motion NEUROLOGICAL: Normal speech, normal gait. SKIN: Warm, Dry, normal turgor, no rashes or lesions noted. - Related Data Allergies/Adverse Reactions: codeine Allergy (Verified 09/04/19 12:06) venom-wasp [wasp venom] Allergy (Verified 09/04/19 12:06) Past Medical History Renal/ Medical History: Denies: Hx Peritoneal Dialysis Psychiatric Medical History: Reports: Hx Attention Deficit Hyperactivity Disorder - off meds 05/2019 Past Surgical History: Reports: Hx Appendectomy, Hx Orthopedic Surgery - back sx - Immunizations Hx Diphtheria, Pertussis, Tetanus Vaccination: Yes Physical Exam - Vital signs Vitals: Temp Pulse Resp BP Pulse Ox 98.6 F 77 16 131/80 H 100 02/26/20 14:53 02/26/20 14:53 02/26/20 14:53 02/26/20 14:53 02/26/20 14:53 Course - Vital Signs Vital signs: Temp Pulse Resp BP Pulse Ox 98.6 F 77 16 131/80 H 100 02/26/20 14:53 02/26/20 14:53 02/26/20 14:53 02/26/20 14:53 02/26/20 14:53
[2020-02-26 15:51] LABS: ABSOLUTE BASOPHILS # (AUTO) 0.1 10^3/uL (0.0-0.2); ABSOLUTE EOSINOPHILS # (AUTO) 0.4 10^3/uL (0.0-0.6); ABSOLUTE MONOCYTES (AUTO) 0.4 10^3/uL (0.1-1.4); ABSOLUTE NEUT (AUTO) 3.4 10^3/uL (1.7-8.2); BASOPHILS % (AUTO) 1.1 % (0-2); EOSINOPHILS % (AUTO) 5.3 % (0-6); HEMATOCRIT 45.1 % (37.9-51.0); LYMPHOCYTES % (AUTO) 40.8 % (13-45); MEAN CORPUSCULAR HEMOGLOBIN 30.9 pg (27.0-33.4); MEAN CORPUSCULAR HGB CONC 35.4 g/dL (32.0-36.0); MEAN CORPUSCULAR VOLUME 87 fl (80-97); MONOCYTES % (AUTO) 5.5 % (3-13); PLATELET COUNT 304 10^3/uL (150-450); RED BLOOD COUNT 5.18 10^6/uL (4.35-5.55); RED CELL DISTRIBUTION WIDTH 13.1 % (11.5-14.0); SEGMENTED NEUTROPHILS % (AUTO) 47.3 % (42-78); TOTAL CELLS COUNTED % (AUTO) 100 %; WHITE BLOOD COUNT 7.2 10^3/uL (4.0-10.5)
[2020-02-26 15:52] LABS: APPEARANCE,URINE CLEAR; BILIRUBIN,URINE NEGATIVE (NEGATIVE); COLOR,URINE STRAW; GLUCOSE, URINE NEGATIVE (NEGATIVE); KETONES,URINE NEGATIVE (NEGATIVE); LEUKOCYTE ESTERASE,URINE NEGATIVE (NEGATIVE); NITRITE,URINE NEGATIVE (NEGATIVE); PROTEIN,URINE NEGATIVE (NEGATIVE); URINE SPECIFIC GRAVITY 1.005; UROBILINOGEN,URINE NEGATIVE mg/dL (<2.0)
[2020-02-26 16:07] LABS: ALBUMIN 4.6 g/dL (3.5-5.0); ALKALINE PHOSPHATASE 84 U/L (38-126); ANION GAP 8 (5-19); ASPARTATE AMINO TRANSFERASE 23 U/L (17-59); BILIRUBIN,TOTAL 0.5 mg/dL (0.2-1.3); BLOOD UREA NITROGEN 12 mg/dL (7-20); CARBON DIOXIDE 24 mmol/L (22-30); CHLORIDE 105 mmol/L (98-107); GLUCOSE 101 mg/dL (75-110); POTASSIUM 4.1 mmol/L (3.6-5.0); TOTAL PROTEIN 7.4 g/dL (6.3-8.2)
--- NOTE | 2020-02-26 17:30 | RADIOLOGY REPORT (SQ) ---
EXAM DESCRIPTION: CTA CHEST IMAGES COMPLETED DATE/TIME: 02/26/2020 5:11 pm REASON FOR STUDY: Lchest,rib,back pain,hx of epidural abcess in Sep COMPARISON: None. TECHNIQUE: CT scan of the chest performed using helical scanning technique with dynamic intravenous contrast injection. Images reviewed with lung, soft tissue and bone windows. Reconstructed coronal and sagittal MPR images reviewed. Additional 3 dimensional post-processing performed to develop Maximal Intensity Projection images (SC P). All images stored on PACS. All CT scanners at this facility use dose modulation, iterative reconstruction, and/or weight based d osing when appropriate to reduce radiation dose to as low as reasonably achievable (ALARA). [facility]: Dose Right [facility]: CareDose [facility]: Dose Right [facility]: Teradose 4D [facility]: Henable CONTRAST TYPE AND DOSE: contrast/concentration: Isovue 350.00 mmol/ml; Total Contrast Delivered: 54. 0 ml; Total Saline Delivered: 80.0 ml Contrast bolus optimized for the pulmonary arteries. Not diagnostic for the aorta. RENAL FUNCTION: BUN 12 creatinine 0.8 RADIATION DOSE: CT Rad equipment meets quality standard of care and radiation dose reduction techniq ues were employed. CTDIvol: 9.4 - 9.6 mGy. DLP: 411 mGy-cm. . LIMITATIONS: None. FINDINGS: LUNGS AND PLEURA: 7 mm perifissural nodule on the right. No infiltrate or effusion. Mild pleural/ parenchymal scarring in the right posterior costophrenic sulcus. AORTA AND GREAT VESSELS: No aneurysm. Contrast bolus not optimized for the aorta. HEART: No pericardial effusion. No significant coronary artery calcifications. PULMONARY ARTERIES: No emboli visualized in the main pulmonary arteries or the segmental branches. HILAR AND MEDIASTINAL STRUCTURES: No identified masses or abnormal nodes. HARDWARE: None in the chest. UPPER ABDOMEN: No significant findings. Limited exam. THYROID AND OTHER SOFT TISSUES: No masses. No adenopathy. BONES: No acute or significant finding. 3D MIPS: Confirm above findings. OTHER: No other significant finding. IMPRESSION: There is no pulmonary embolus. There is no aortic aneurysm. There is a 7 mm nodule on the right. There is mild pleural/ parenchymal scarring in the right posterior costophrenic sulcus. COMMENT: FLEISCHNER CRITERIA FOR FOLLOW-UP OF PULMONARY NODULES Incidentally detected new nodules in persons 35 or older. HIGH RISK: History of smoking or other known risk factors. 6-8 mm single solid nodule: LOW RISK: CT 6-12 mo; then consider CT 18-24 mo. HIGH RISK: CT 6-12 mo; t hen CT 18-24 mo. Quality ID # [id number]: Final reports with documentation of one or more dose reduction techniques (e.g., Au tomated exposure control, adjustment of the mA and/or kV according to patient size, use of iterative reconstruction technique) TECHNICAL DOCUMENTATION: JOB ID: [id number] 2010 [employer]- All Rights Reserved Reading location - IP/workstation name: [email or web address]
[2020-02-26] MEDS ORDERED: ONDANSETRON HCL INJ/PF 4 MG/2 ML SDV IV ONE (17:56)
[2020-02-26] MEDS ORDERED: FENTANYL CITRATE INJ/PF 100 MCG/2 ML AMPUL IV ONE (17:56)
--- NOTE | 2020-02-26 18:09 | ER Document Report ---
Entered by ARIELLE CASSIDY SCRIBE 02/26/20 1723 Acting as scribe for:EMILIA COLLAZO DO ED General - General Chief Complaint: Rib Pain Stated Complaint: RIB PAIN Mode of Arrival: Ambulatory Information source: Patient Notes: This 44 year old male patient presents to the ED today with complaints of mid sternal pain that radiates to his left ribs and back since his PICC line was removed in the beginning of January. Patient states that it feels like his ribs "crack with deep breaths." Patient had a thoracic epidural abscess and positive blood cultures that grew out MRSA in August and was seen here initially and then transferred to [facility] for further treatment. Patient was seen by his PCP on January 29 with the same complaint and was referred to a surgeon; however he has not been scheduled for a visit yet. No fever and no back pain. No weakness. TRAVEL OUTSIDE OF THE [place] IN LAST 30 DAYS: No - Related Data Allergies/Adverse Reactions: codeine Allergy (Verified 09/04/19 12:06) venom-wasp [wasp venom] Allergy (Verified 09/04/19 12:06) Past Medical History - General Information source: Patient, [facility] Records - Social History Smoking Status: Current Every Day Smoker Cigarette use (# per day): Yes Chew tobacco use (# tins/day): No Smoking Education Provided: No Frequency of alcohol use: None Drug Abuse: None Family History: Reviewed & Not Pertinent, CAD, CVA, DM, Hyperlipidemia, Hypertension, Malignancy Patient has suicidal ideation: No Patient has homicidal ideation: No Skin Medical History: Reports Hx MRSA Psychiatric Medical History: Reports: Hx Attention Deficit Hyperactivity Disorder - off meds 05/2019 Past Surgical History: Reports: Hx Appendectomy, Hx Orthopedic Surgery - back sx - Immunizations Hx Diphtheria, Pertussis, Tetanus Vaccination: Yes Review of Systems - Review of Systems Constitutional: See HPI. denies: Fever, Weakness EENT: No symptoms reported Cardiovascular: Chest pain - reproducible, sternal Respiratory: No symptoms reported Gastrointestinal: No symptoms reported Genitourinary: No symptoms reported Male Genitourinary: No symptoms reported Musculoskeletal: See HPI, Muscle pain - Rib pain Skin: No symptoms reported Hematologic/Lymphatic: No symptoms reported Neurological/Psychological: No symptoms reported -: Yes All other systems reviewed and negative Physical Exam - Vital signs Vitals: Temp Pulse Resp BP Pulse Ox 98.6 F 77 16 131/80 H 100 02/26/20 14:53 02/26/20 14:53 02/26/20 14:53 02/26/20 14:53 02/26/20 14:53 - General General appearance: Appears well, Alert In distress: None - HEENT Head: Normocephalic, Atraumatic Eyes: Normal Extraocular movements intact: Yes Pupils: PERRL - Respiratory Respiratory status: No respiratory distress Chest status: Tender - Palpable and reproducible pain of mid chest wall to left costal margin. No deformity, erythema, or crepitus. Breath sounds: Normal Chest palpation: Normal - Cardiovascular Rhythm: Regular Heart sounds: Normal auscultation Murmur: No Friction rub: No Gallop: None auscultated - Abdominal Inspection: Normal Distension: No distension Bowel sounds: Normal Tenderness: Nontender - Abdomen soft Organomegaly: No organomegaly - Back Back: Normal, Nontender - Extremities General upper extremity: Normal inspection General lower extremity: Normal inspection. No: Edema - Neurological Neuro grossly intact: Yes Orientation: AAOx4 [place] Coma Scale Eye Opening: Spontaneous Tomasz Coma Scale Verbal: Oriented Tomasz Coma Scale Motor: Obeys Commands [place] Coma Scale Total: 15 - Psychological Associated symptoms: Normal affect, Normal mood - Skin Skin Temperature: Warm Skin Moisture: Dry Skin Color: Normal Course - Re-evaluation Re-evalutation: 02/26/20 18:10 MDM 44 year old male arrives with complaints of left sided chest pain. He has had pain for weeks and he is a complex pt - recovering from thoracic epidural abcess. He has had weeks now of sternal pain that radiates to left chest along rib cage. He has a local PCP and I expressed to him that I feel he should follow up with them for further workup. Further his right sided pulmonary nodule should be followed up with a repeat ct in perhaps 6 months. We discussed this and he expressed understanding. - Vital Signs Vital signs: Temp Pulse Resp BP Pulse Ox 98.6 F 77 16 131/80 H 100 02/26/20 14:53 02/26/20 14:53 02/26/20 14:53 02/26/20 14:53 02/26/20 14:53 - Laboratory Result Diagrams: 02/26/20 15:24 02/26/20 15:24 - Diagnostic Test Radiology reviewed: Image reviewed, Reports reviewed Discharge - Discharge Clinical Impression: Chest wall pain, Pulmonary nodule Condition: Stable Disposition: HOME, SELF-CARE Instructions: Anti-Inflammatory Medication ([facility]), Chest Wall Pain ([facility]), Family Physicians / Practices, Oral Narcotic Medication ([facility]) Additional Instructions: See your doctor in follow up. Rest, take your medicine as directed. Please return here for chest pain or shortness of breath or other problems or other co ncerns. Remember that you have a nodule on your right side in your lung that is small (less than 1 cm) and needs a follow up Ct of the chest in about 6 months. Prescriptions: Ibuprofen [Motrin 600 mg Tablet] 600 mg PO Q8HP PRN #30 tablet PRN Reason: Hydrocodone/Acetaminophen [[place] 5-325 mg Tablet] 1 tab PO TID #12 tablet Forms: Smoking Cessation Education I personally performed the services described in the documentation, reviewed and edited the documentation which was dictated to the scribe in my presence, and it accurately records my words and actions.
== END 2020-02-26 18:45 | disposition home or self-care (01) ==
LOC: ER 14:48
DX: R07.89 Other chest pain (principal); R91.1 Solitary pulmonary nodule; R07.81 Pleurodynia; F17.210 Nicotine dependence, cigarettes, uncomplicated
CPT/HCPCS: 99284; 96374; 96375; 36415; 85025; 80053; 81001; 71275; J3010; J2405

== ENCOUNTER 2020-07-14 13:26 | Emergency (ER) | payer OTHER ==
--- NOTE | 2020-07-14 13:34 | ER Document Report ---
ED Medical Screen (RME) - General Chief Complaint: Rib Pain Stated Complaint: RIB PAIN, BACK PAIN Time Seen by Provider: 07/14/20 13:32 Notes: HPI: 45-year-old male with history of thoracic spine abscess treated at [facility] in September of this year presenting for 3 months of daily pain in the epigastric lower chest wall rib cage area. States he has been seen at the [facility] and they did an x-ray but did not find anything but today and the last 2 days have been more significantly uncomfortable. Hurts to take a deep breath and hurts to push on the chest wall and the upper abdomen. No fevers nausea or vomiting PHYSICAL EXAMINATION: No visible rash on the anterior chest. There is tenderness along the left lower rib cage region and moderate tenderness in the epigastric region on palpation lung sounds are clear to auscultation I have greeted and performed a rapid initial assessment of this patient. A comprehensive ED assessment and evaluation of the patient, analysis of test results and completion of medical decision making process will be conducted by an additional ED providers. TRAVEL OUTSIDE OF THE U.S. IN LAST 30 DAYS: No - Related Data Allergies/Adverse Reactions: codeine Allergy (Verified 09/04/19 12:06) venom-wasp [wasp venom] Allergy (Verified 09/04/19 12:06) Past Medical History Renal/ Medical History: Denies: Hx Peritoneal Dialysis Skin Medical History: Reports Hx MRSA Psychiatric Medical History: Reports: Hx Attention Deficit Hyperactivity Disorder - off meds 05/2019 Past Surgical History: Reports: Hx Appendectomy, Hx Orthopedic Surgery - back sx - Immunizations Hx Diphtheria, Pertussis, Tetanus Vaccination: Yes
--- NOTE | 2020-07-14 14:29 | RADIOLOGY REPORT (SQ) ---
EXAM DESCRIPTION: CHEST 2 VIEWS IMAGES COMPLETED DATE/TIME: 07/14/2020 2:19 pm REASON FOR STUDY: chest pain COMPARISON: 09/04/2019 EXAM PARAMETERS: NUMBER OF VIEWS: two views TECHNIQUE: Digital Frontal and Lateral radiographic views of the chest acquired. RADIATION DOSE: NA LIMITATIONS: none FINDINGS: LUNGS AND PLEURA: No opacities, masses or pneumothorax. No pleural effusion. MEDIASTINUM AND HILAR STRUCTURES: No masses or contour abnormalities. HEART AND VASCULAR STRUCTURES: Heart normal size. No evidence for failure. BONES: No acute findings. HARDWARE: None in the chest. OTHER: No other significant finding. IMPRESSION: NO ACUTE RADIOGRAPHIC FINDING IN THE CHEST. TECHNICAL DOCUMENTATION: JOB ID: [id number] 2010 [employer]- All Rights Reserved Reading location - IP/workstation name: [email or web address]
[2020-07-14 15:11] LABS: ABSOLUTE BASOPHILS # (AUTO) 0.1 10^3/uL (0.0-0.2); ABSOLUTE EOSINOPHILS # (AUTO) 0.3 10^3/uL (0.0-0.6); ABSOLUTE LYMPHOCYTES (AUTO) 2.8 10^3/uL (0.5-4.7); ABSOLUTE MONOCYTES (AUTO) 0.3 10^3/uL (0.1-1.4); ABSOLUTE NEUT (AUTO) 4.6 10^3/uL (1.7-8.2); BASOPHILS % (AUTO) 0.8 % (0-2); EOSINOPHILS % (AUTO) 3.3 % (0-6); HEMATOCRIT 45.2 % (37.9-51.0); HEMOGLOBIN 15.6 g/dL (13.5-17.0); LYMPHOCYTES % (AUTO) 34.9 % (13-45); MEAN CORPUSCULAR HEMOGLOBIN 30.4 pg (27.0-33.4); MEAN CORPUSCULAR HGB CONC 34.6 g/dL (32.0-36.0); MEAN CORPUSCULAR VOLUME 88 fl (80-97); MONOCYTES % (AUTO) 4.2 % (3-13); PLATELET COUNT 303 10^3/uL (150-450); RED BLOOD COUNT 5.13 10^6/uL (4.35-5.55); RED CELL DISTRIBUTION WIDTH 12.4 % (11.5-14.0); SEGMENTED NEUTROPHILS % (AUTO) 56.8 % (42-78); TOTAL CELLS COUNTED % (AUTO) 100 %; WHITE BLOOD COUNT 8.2 10^3/uL (4.0-10.5)
[2020-07-14 15:14] LABS: APPEARANCE,URINE CLEAR; BILIRUBIN,URINE NEGATIVE (NEGATIVE); COLOR,URINE STRAW; GLUCOSE, URINE NEGATIVE (NEGATIVE); KETONES,URINE NEGATIVE (NEGATIVE); LEUKOCYTE ESTERASE,URINE NEGATIVE (NEGATIVE); NITRITE,URINE NEGATIVE (NEGATIVE); PROTEIN,URINE NEGATIVE (NEGATIVE); URINE SPECIFIC GRAVITY 1.006; UROBILINOGEN,URINE NEGATIVE mg/dL (<2.0)
[2020-07-14 15:34] LABS: ALBUMIN 4.4 g/dL (3.5-5.0); ALKALINE PHOSPHATASE 86 U/L (38-126); ANION GAP 9 (5-19); ASPARTATE AMINO TRANSFERASE 23 U/L (17-59); BILIRUBIN,DIRECT 0.1 mg/dL (0.0-0.4); BILIRUBIN,TOTAL 0.4 mg/dL (0.2-1.3); BLOOD UREA NITROGEN 11 mg/dL (7-20); CARBON DIOXIDE 26 mmol/L (22-30); CHLORIDE 102 mmol/L (98-107); GLUCOSE 131 mg/dL (75-110); POTASSIUM 4.4 mmol/L (3.6-5.0); TOTAL PROTEIN 6.7 g/dL (6.3-8.2)
[2020-07-14 15:35] LABS: C-REACTIVE PROTEIN < 5.0 mg/L (<10.0)
[2020-07-14 15:56] LABS: ERYTHROCYTE SEDIMENTATION RATE 5 mm/hr (0-15)
--- NOTE | 2020-07-14 16:39 | EKG REPORT ---
SEVERITY:- ABNORMAL ECG - SINUS RHYTHM PROBABLE LEFT ATRIAL ABNORMALITY NONSPECIFIC INTRAVENTRICULAR CONDUCTION DELAY : Confirmed by: Glenn Spaulding 14-Jul-2020 16:38:56
[2020-07-14] MEDS ORDERED: METOCLOPRAMIDE HCL ORAL SOLN 10 MG/10 ML UDCUP PO ONE (19:11)
[2020-07-14] MEDS ORDERED: MAG HYDROX/AL HYDROX/SIMETH SUSP 30 ML UDCUP PO ONE (19:11)
[2020-07-14] MEDS ORDERED: LIDOCAINE 2% VISCOUS SOLN 15 ML UDCUP PO ONE (19:11)
[2020-07-14] MEDS ORDERED: KETOROLAC TROMETHAMINE INJ/PF 30 MG/1 ML SDV IV ONE (21:00)
[2020-07-14 22:06] VITALS: BP 118/81
--- NOTE | 2020-07-14 22:17 | RADIOLOGY REPORT (SQ) ---
EXAM DESCRIPTION: MR THORACIC SPINE WITHOUT THEN WITH IV CONTRAST COMPLETED DATE/TME: 07/14/2020 21:56 CLINICAL HISTORY: 45 years, Male, Thoracic pain, recent epidural abscess COMPARISON: None. TECHNIQUE: 270 Images stored on PACS. LIMITATIONS: None. FINDINGS: Vertebral body height and alignment is preserved. No suspicious marrow signal. Normal signal in the visualized spinal cord. Minor inferior endplate degenerative change in the mid thoracic spine. No enhancing abnormality. No MR evidence for disc bulge or protrusion at any level. No MR evidence for central canal stenosis or significant neural foraminal compromise at any level. Limited evaluation of extraspinal anatomic structures is grossly unremarkable IMPRESSION: Minor endplate degenerative changes of the mid to lower thoracic spine. Otherwise unremarkable exam copyright 2010 [employer]- All Rights Reserved
--- NOTE | 2020-07-14 22:47 | ER Document Report ---
ED General - General Chief Complaint: Rib Pain Stated Complaint: RIB PAIN, BACK PAIN Time Seen by Provider: 07/14/20 13:32 Primary Care Provider: FELY GEE MD [COMMUNITY BASED STAFF] - Follow up as needed Mode of Arrival: Ambulatory TRAVEL OUTSIDE OF THE [place] IN LAST 30 DAYS: No - HPI Notes: This patient is a 45-year-old male who presents to the emergency department complaining of subcostal, epigastric and midthoracic back pain that has been go ing on for weeks. It all seems to gotten worse in the last 3 days which is what finally got him here. He denies any fever or chills. He denies any change in color or character of his stools. He denies any hematemesis or coffee-ground emesis. He states the pain waxes and wanes. When he takes a deep breath he describes it as stabbing both in his mid thoracic region and in his epigastric region. He has no documented history of acid peptic disease. 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 He states he is recovered from that completely and has been off antibiotics for some time. He denies any distal neurologic symptoms. He specifically denies any numbness weakness or paralysis in his legs and has no perineal or sphincter symptoms. He is otherwise in his usual state of health. - Related Data Allergies/Adverse Reactions: codeine Allergy (Verified 07/14/20 20:56) venom-wasp [wasp venom] Allergy (Verified 07/14/20 20:56) Home Medications: denies Past Medical History - General Information source: Patient - Social History Smoking Status: Current Every Day Smoker Chew tobacco use (# tins/day): No Frequency of alcohol use: None Drug Abuse: None Family History: Reviewed & Not Pertinent, CAD, CVA, DM, Hyperlipidemia, Hypertension, Malignancy Patient has homicidal ideation: No - Medical History Notes: As documented in the electronic health record. Renal/ Medical History: Denies: Hx Peritoneal Dialysis Skin Medical History: Reports Hx MRSA Psychiatric Medical History: Reports: Hx Attention Deficit Hyperactivity Disorder - off meds 05/2019 Past Surgical History: Reports: Hx Appendectomy, Hx Orthopedic Surgery - back sx - Immunizations Hx Diphtheria, Pertussis, Tetanus Vaccination: Yes Review of Systems - Review of Systems Notes: All other systems were reviewed and are negative or noncontributory except as n oted in the present illness. Physical Exam - Vital signs Vitals: Temp Pulse Resp BP Pulse Ox 98.0 F 71 20 144/79 H 98 07/14/20 13:36 07/14/20 13:36 07/14/20 13:36 07/14/20 13:36 07/14/20 13:36 - Notes Notes: General: Well-developed well-nourished male no acute distress. Vital signs and nursing chief complaint are reviewed. HEENT: Grossly normal to inspection. Neck: Supple nontender no adenopathy. Lungs: Clear to auscultation all leyva. Back: Patient is somewhat tender to palpation in his mid thoracic region although he has no vertebral point tenderness. Heart: Regular rate and rhythm no murmur. Abdomen: Mild epigastric direct tenderness. No guarding. No masses. No rebound organomegaly. Extremities: Without clubbing cyanosis edema or deformity. Neuro: Alert and oriented x3. Strength and sensation are within normal limits in all extremities. Course - Re-evaluation Re-evalutation: 07/14/20 22:45 Patient received some Toradol for pain which improved things. Before he had that I gave him a GI cocktail and he said that that was "soothing" to the substernal and xiphoid pain that he had. His thoracic spine MRI was remarkable only for mild degenerative change. There was no evidence of any active or acute infection or pathologic fracture. On reassessment the patient seen much more comfortable. I discussed all the results with him. We talked about starting acid suppression therapy. My plan is to put him on omeprazole and sucralfate. We will ask him to follow-up with primary care in about 2 weeks for reevaluation. - Vital Signs Vital signs: Temp Pulse Resp BP Pulse Ox 97.8 F 55 L 16 118/81 95 07/14/20 22:05 07/14/20 22:05 07/14/20 22:05 07/14/20 22:05 07/14/20 22:05 - Laboratory Result Diagrams: 07/14/20 14:55 07/14/20 14:58 Laboratory results interpreted by me: 07/14/20 14:58 Glucose 131 H Lipase 319.1 H - Diagnostic Test Radiology reviewed: Reports reviewed Radiology results interpreted by me: 07/14/20 22:45 Chest X-Ray 07/14/20 13:32 IMPRESSION: NO ACUTE RADIOGRAPHIC FINDING IN THE CHEST. Thoracic Spine MRI 07/14/20 19:25 IMPRESSION: Minor endplate degenerative changes of the mid to lower thoracic spine. Otherwise unremarkable exam copyright 2010 [employer]- All Rights Reserved Discharge - Discharge Clinical Impression: Epigastric pain, Acute thoracic back pain Condition: Good Disposition: HOME, SELF-CARE Additional Instructions: A prescription for omeprazole, and acid suppression medicine, and sucralfate, a codeine for the inside of your stomach, have both been sent to your pharmacy. Please pick them up and take them according to label directions. Follow-up with her primary care provider listed in about 2 weeks for recheck. Call for an appointment. Return to the emergency department sooner if any concerning symptoms develop. Prescriptions: Sucralfate [Carafate 1 gm Tablet] 1 gm PO ACHS #120 tablet Omeprazole 20 mg PO DAILY #30 capsule.dr Referrals: FELY GEE MD [COMMUNITY BASED STAFF] - Follow up as needed
== END 2020-07-14 23:29 | disposition home or self-care (01) ==
LOC: ER 13:26
DX: R10.13 Epigastric pain (principal); M54.6 Pain in thoracic spine; R07.81 Pleurodynia; M54.9 Dorsalgia, unspecified; Z88.8 Allergy status to other drugs, medicaments and biological substances; F17.200 Nicotine dependence, unspecified, uncomplicated
CPT/HCPCS: 93005; 99285; 96374; 36415; 82150; 83690; 85025; 85652; 86140; 80053; 81001; 84484; 72157; 71046; 93010; A9576; J3490; J1885